=== PATIENT | female | born 1940 | race Caucasian/White ===

== ENCOUNTER 2020-03-16 06:57 | Day surgery (SDC) | payer MEDICARE, OTHER ==
[~2020-03-16 06:57] MED LIST: Lactated Ringers 1,000 ML IV SCH; Lidocaine 1%/Sod Bicarbonate in NS 8.4% 1 ML Syringe IDERM PRN; Sodium Chloride 0.9% 10 ML Syringe FLUSH PRN
[2020-03-16] MEDS ORDERED: fentaNYL 100 MCG/2 ML SDV ONE (07:09)
[2020-03-16] MEDS ORDERED: Propofol 200 MG/20 ML SDV ONE ×3 (07:09→09:13)
--- NOTE | 2020-03-16 07:26 | PCM.PREANE ---
Preanesthetic Assessment - Procedure Proposed Procedure: EGD, Colonoscopy - Anesthesia/Transfusion/Family Hx Anesthesia History: Prior Anesthesia Without Reaction Transfusion History: No Prior Transfusion(s) - Review of Systems General: No Symptoms Pulmonary: No Symptoms Cardiovascular: Dyspnea on Exertion (as a baseline) Gastrointestinal: Other (occasional discomfort) Neurological: No Symptoms Other: Reports: Diabetes - Physical Assessment NPO Status Date: 03/15/20 NPO Status Time: 20:15 Vital Signs: Last Vital Signs Temp 98.7 F 03/16/20 07:00 Pulse 66 03/16/20 07:00 Resp 20 03/16/20 07:00 BP 164/99 H 03/16/20 07:00 Pulse Ox 97 03/16/20 07:00 Height: 1.55 m Weight: 73.936 kg ASA Class: 3 Mental Status: Alert & Oriented x3 Dentition: Reports: Dentures, Edentulous Thyro-Mental Finger Breadths: 3 Mouth Opening Finger Breadths: 3 ROM/Head Extension: Limited/Partial Lungs: Clear to Auscultation, Normal Respiratory Effort Cardiovascular: Other (Paced rhythm) - Imaging/EKG Impressions: V paced EKG Echo 10/15/19 Moderate bilateral enlargement, EF 60-65% - Allergies Allergies/Adverse Reactions: Allergies Allergy/AdvReac Type Severity Reaction Status Date / Time amoxicillin Allergy Anaphylactic Verified 03/15/20 14:01 Shock Cephalosporins Allergy Swelling Verified 03/15/20 14:01 doxycycline Allergy Cannot Verified 03/15/20 14:01 Remember isosorbide [From Imdur] Allergy Cannot Verified 03/15/20 14:01 Remember pramipexole [From Mirapex] Allergy Cannot Verified 03/15/20 14:01 Remember pravastatin [From Pravachol] Allergy Cannot Verified 03/15/20 14:01 Remember Quinolones Allergy Cannot Verified 03/15/20 14:01 Remember Sulfa (Sulfonamide Allergy Anaphylactic Verified 03/15/20 14:01 Antibiotics) Shock valsartan [From Diovan] Allergy Anaphylactic Verified 03/15/20 14:01 Shock - Anesthesia Plan Beta Meghan: Atenolol Med Last Dose Date: 03/15/20 Med Last Dose Time: 17:00 - Acknowledgements Anesthesia Type Planned: MAC Pt an Appropriate Candidate for the Planned Anesthesia: Yes Alternatives and Risks of Anesthesia Discussed w Pt/Guardian: Yes Pt/Guardian Understands and Agrees with Anesthesia Plan: Yes PreAnesthesia Questionnaire HEENT History: Reports: Cataract, Hard of Hearing, Impaired Vision, Sinusitis, Other (See Below) Other HEENT History: eye pain, wears glasses, ringing in ears, nasal stufiness, sore throat Cardiovascular History: Reports: Afib, CAD, High Cholesterol, Hypertension, Pacemaker, PTCA, Other (See Below) Other Cardiovascular History: sick sinus syndrome, ankle edema Respiratory History: Reports: None Gastrointestinal History: Reports: Chronic Constipation, Chronic Diarrhea, Diverticulosis, Hemorrhoids, PUD, Other (See Below) Other Gastrointestinal History: fecal incontinence, hematochezia, upper abdominal pain, heartburn, nausea, blood in stools Genitourinary History: Reports: Other (See Below) Other Genitourinary History: parital bladder excsion, cystoscopy, burning, nocturia, leakage [employer]EL[employer] History: Reports: Musculoskeletal History: Reports: Back Pain, Chronic, Osteoarthritis, Other (See Below) Other Musculoskeletal History: ostepenia, joint pain, muscle pain, stiffness Neurological History: Reports: Other (See Below) Other Neuro History: fatigue, numbness, tremors, memory loss Endocrine/Metabolic History: Reports: Diabetes, Type II, Obesity/BMI 30+, Osteopenia, Vitamin D Deficiency Immunologic History: Reports: None Oncologic (Cancer) History: Reports: Bladder, Breast Dermatologic History: Reports: Other (See Below) Other Dermatologic History: hives - Infectious Disease History Infectious Disease History: Reports: None - Past Surgical History HEENT Surgical History: Reports: Cataract Surgery Cardiovascular Surgical History: Reports: Pacer, Other (See Below) Other Cardiovascular Surgeries/Procedures: cardiac catherization with stenting x 2 GI Surgical History: Reports: EGD, Other (See Below) Other GI Surgeries/Procedures: partial gasrectomy Female Surgical History: Reports: None Male Surgical History: Reports: None Endocrine Surgical History: Reports: None Musculoskeletal Surgical History: Reports: None Oncologic Surgical History: Reports: Biopsy of Breast, Lumpectomy - SUBSTANCE USE Tobacco Use Status *Q: Former Tobacco User Recreational Drug Use History: No - HOME MEDS Home Medications: Home Meds Insulin Aspart [Novolog Flexpen] 18 units SQ TIDAC 08/12/13 [History] Multivitamin [Multivitamins] 1 each PO DAILY 08/12/13 [History] atenoloL [Tenormin] 100 mg PO DAILY 08/12/13 [History] dilTIAZem HCL [Taztia Xt] 360 mg PO DAILY 08/12/13 [History] metFORMIN [Glucophage] 500 mg PO DAILY 08/12/13 [History] Acetaminophen [Tylenol Extra Strength] 1 - 2 tab PO Q4HR PRN 01/01/16 [History] Cetirizine [ZyrTEC] 10 mg PO DAILY 01/01/16 [History] Nitroglycerin [Nitrostat] 0.4 mg SL ASDIRECTED PRN 01/01/16 [History] Triamterene/Hydrochlorothiazid [Triamterene-HCTZ 37.5-25 MG] 1 tab PO DAILY 01/01/16 [History] Hydrocortisone [Cortisone] 1 dose TOP TID PRN 03/15/20 [History] Insulin Detemir [Levemir] 52 units SQ QAM 03/15/20 [History] Rivaroxaban [Xarelto] 15 mg PO DAILY 03/15/20 [History] atorvaSTATin [Lipitor] 80 mg PO DAILY 03/15/20 [History] - CURRENT (IN HOUSE) MEDS Current Meds: Current Medications Lactated Ringer's (Ringers, Lactated) 1,000 mls @ 125 mls/hr IV ASDIRECTED MARCIO Stop: 03/16/20 23:00 Lidocaine/Sodium Bicarbonate (Buffered Lidocaine 1% In Ns 8.4%) 0.25 ml IDERM ONETIME PRN PRN Reason: Prior to IV Start Stop: 03/16/20 18:00 Sodium Chloride (Saline Flush) 10 ml FLUSH ASDIRECTED PRN PRN Reason: Keep Vein Open Stop: 03/16/20 18:00 Discontinued Medications Fentanyl (Sublimaze) Confirm Administered Dose 100 mcg .ROUTE .STK-MED ONE Stop: 03/16/20 07:10 Propofol (Diprivan 20 Ml) Confirm Administered Dose 400 mg .ROUTE .STK-MED ONE Stop: 03/16/20 07:10
[2020-03-16] MEDS ORDERED: Lidocaine 1% 4 ML ONE (08:48)
--- NOTE | 2020-03-16 09:43 | PCM.OPNOTE ---
- General Post-Op/Procedure Note Date of Surgery/Procedure: 03/16/20 Operative Procedure(s): EGD and colonoscopy Findings: 1. gastritis 2. Hiatal hernia 3. Irregular Z-line 4. Cecal polyp x2 5. Ileocecal valve polyp 6. Ascending colon polyp 1cm 7. Transverse colon polyp 1.3cm 8. Transverse colon polyp x3 9. Splenic flexure polyp x2 10. Descending colon polyp 11. RectoSigmoid colitis Pre Op Diagnosis: Melena, early satiety, change in bowel habits, fecal incontinence Post-Op Diagnosis: same Anesthesia Technique: [facility] Primary Surgeon: Susan Rangel Anesthesia Provider: Isaiah Morse Pathology: 1. Distal stomach biopsy 2. Z-line biopsies 3. Cecal polyp x2 4. Ileocecal valve polyp 5. Ascending colon polyp 1cm 6. Transverse colon polyp 1.3cm 7. Transverse colon polyp x3 8. Splenic flexure polyp x2 9. Descending colon polyp 10. RectoSigmoid colitis biopsies Fluid Replacement, Intraop: 700 EBL in mLs: 0 Complications: none apparent Condition: Good
--- NOTE | 2020-03-16 09:43 | PCM48HPAN ---
Post Anesthesia Note - EVALUATION WITHIN 48HRS OF ANESTHETIC Vital Signs in Normal Range: Yes Patient Participated in Evaluation: Yes Respiratory Function Stable: Yes Airway Patent: Yes Cardiovascular Function Stable: Yes Hydration Status Stable: Yes Pain Control Satisfactory: Yes Nausea and Vomiting Control Satisfactory: Yes Mental Status Recovered: Yes Vital Signs: Last Vital Signs Temp 97.3 F 03/16/20 09:33 Pulse 69 03/16/20 09:33 Resp 20 03/16/20 09:33 BP 140/78 03/16/20 09:33 Pulse Ox 95 03/16/20 09:33
--- NOTE | 2020-03-16 10:22 | PCM.PRNOTE ---
- Free Text/Narrative Note: Operative Report Date of Procedure: March 16, 2020 Pre Op Diagnosis: melena, early satiety, change in bowel habits, fecal incontinence. Post-Op Diagnosis: same Operative Procedures: 1. EGD with biopsy 2. Colonoscopy to the cecum Primary Surgeon: Susan Rangel MD Anesthesia Provider: Isaiah Morse CRNA Anesthesia Technique: MAC IV Fluid Replacement, Intraop: 700cc crystalloid Output, Urine Amount: 0cc EBL in mLs: 0cc Findings: 1. gastritis 2. Hiatal hernia 3. Irregular Z-line 4. Cecal polyp x2 5. Ileocecal valve polyp 6. Ascending colon polyp 1cm 7. Transverse colon polyp 1.3cm 8. Transverse colon polyp x3 9. Splenic flexure polyp x2 10. Descending colon polyp 11. RectoSigmoid colitis 12. Diverticulosis 13. Rectal mucosal prolapse Specimens: 1. Distal stomach biopsy 2. Z-line biopsies 3. Cecal polyp x2 4. Ileocecal valve polyp 5. Ascending colon polyp 1cm 6. Transverse colon polyp 1.3cm 7. Transverse colon polyp x3 8. Splenic flexure polyp x2 9. Descending colon polyp 10. RectoSigmoid colitis biopsies Drain/Tubes: None Indication: The patient is an 79-year-old lady who presented to the clinic for evaluation for endoscopy procedures. The patient reported symptoms of melena, early satiety, change in bowel habits and fecal incontinence . The patient was consented for a diagnostic EGD and colonoscopy. Risks of bleeding, and perforation were discussed, and the patient agreed to the risks and wished to proceed. Description of the procedure: The patient was taken back to the endoscopy suite, and placed in the left lateral decubitus position. A bite block was placed. The patient was sedated with MAC anesthesia. The Olympus video endoscope was inserted into the oropha rynx and guided under direct vision into the esophagus, stomach, and duodenum. The duodenal bulb and second portion of the duodenum were unremarkable. 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 The anastomosis was intact without abnormality. The gastric antrum was inspected and cold biopsy forceps were used to take tissue samples for H. pylori. The mucosa of the stomach was erythematous and edematous throughout with some punctate areas of bleeding. No erosions or ulcers were noted. The scope was withdrawn to the GE junction. A this point we noted a small hiatal hernia. No specific Barretts esophagus changes were noted, but there was irregularity of the Z line consistent with esophagitis. Biopsies were taken of the Z line in 4 quadrants with a cold biopsy forceps. The endoscope was then withdrawn Next, anorectal examination was performed. No lesions, masses or hemorrhoids were noted externally or on palpation. There were multiple skin tags, and a small amount of rectal mucosal prolapse. The scope was placed into the rectum and advanced to cecum. Upon reaching the cecum, and the patients cecum was entered. There was moderate tortuosity of the rectum and sigmoid colon. The ileocecal valve was well visualized and the appendiceal orifice identified. At this point, the scope was slowly withdrawn, paying attention to the mucosa. The patient had good bowel prep, 90-95% of the mucosa was visible. An 8mm sessile cecal polyp was noted and removed with a jumbo cold biopsy forceps. An additional sessile 3mm cecal polyp was noted and removed with a jumbo cold biopsy forceps. A 3mm flat polyp was noted on the ileocecal valve and removed using a jumbo cold biopsy forceps. In the ascending colon, a 1cm sessile irregular polyp was noted and removed with a jumbo cold biopsy forceps. A proximal transverse colon polyp was noted and measured approximately 1.3cm. It was removed using a jumbo cold biopsy forceps, and this area was tattooed with fannie ink. There were 3 additional polyps in the transverse colon measuring 3-4 mm, and were removed using a jumbo cold biopsy forceps. There were 2 sessile polyps in the area of the splenic flexure, measuring 3-4 mm, and were removed with a jumbo cold biopsy forceps. An additional flat, 3mm descending colon polyp was noted and removed using a jumbo cold biopsy forceps. There were multiple large-mouthed diverticula concentrated in the sigmoid colon, but also scattered throughout the entire colon. In the recto-sigmoid area, there was erythema and petechiae consistent with colitis, and this was biopsied with a jumbo cold biopsy forceps. In the rectum, scope was retroflexed and some hemorrhoidal tissue was noted. The scope was placed back in the lumen and excess air was aspirated. The scope was removed. The patient tolerated the procedure very well. Complications: None apparent Condition: The patient was transported to PACU in stable condition. Susan Rangel MD General Surgery
[2020-03-16 11:13] VITALS: BP 147/78; PULSE 90
== END 2020-03-16 10:30 | disposition home or self-care (01) ==
LOC: JD.SDS 06:57
PROVIDERS: ATTEND Surgery
DX: D12.0 Benign neoplasm of cecum (principal); D12.2 Benign neoplasm of ascending colon; D12.3 Benign neoplasm of transverse colon; D12.4 Benign neoplasm of descending colon; K44.9 Diaphragmatic hernia without obstruction or gangrene; K21.00 Gastro-esophageal reflux disease with esophagitis, without bleeding; K31.89 Other diseases of stomach and duodenum; K29.70 Gastritis, unspecified, without bleeding; K57.30 Diverticulosis of large intestine without perforation or abscess without bleeding; K62.3 Rectal prolapse; K52.9 Noninfective gastroenteritis and colitis, unspecified; K64.4 Residual hemorrhoidal skin tags; I25.10 Atherosclerotic heart disease of native coronary artery without angina pectoris; I49.5 Sick sinus syndrome; I48.20 Chronic atrial fibrillation, unspecified; I10 Essential (primary) hypertension; E78.5 Hyperlipidemia, unspecified; Z95.0 Presence of cardiac pacemaker; Z88.1 Allergy status to other antibiotic agents; Z88.2 Allergy status to sulfonamides; Z88.8 Allergy status to other drugs, medicaments and biological substances; Z79.899 Other long term (current) drug therapy; Z95.5 Presence of coronary angioplasty implant and graft; Z87.891 Personal history of nicotine dependence
CPT/HCPCS: 43239; 45380; 45381; 82962; 88305; J2001; J2704; J3010; J7120; 00813

== ENCOUNTER 2020-10-24 09:47 | Observation (INO) | payer MEDICARE, OTHER ==
--- NOTE | 2020-10-24 10:25 | EDM.PDOC ---
ED HPI GENERAL MEDICAL PROBLEM - General Chief Complaint: Cardiovascular Problem Stated Complaint: RACING HEART, SWEATING,SWOLLEN FEET Time Seen by Provider: 10/24/20 10:25 Source of Information: Reports: Patient History Limitations: Reports: No Limitations - History of Present Illness INITIAL COMMENTS - FREE TEXT/NARRATIVE: 80-year-old female presents to the ED in the accompaniment of her daughter. The history suggest that she has had increased weight gain and increased marked dependent edema over the last several weeks but worse over the weekend. She is short of breath on minimal exertion such as just walking from the bedroom to the bathroom. She can lie on her left side to sleep and does not use more than one pillow. No PND orthopnea. Mild nonproductive cough. No fever or chills. Patient does carry a history of congestive heart failure. She is aware that her heart is beating hard in her chest at times. This is mostly noted on exertion. She has a pacemaker left upper anterior chest. Denies any pleuritic chest pain. Does describe a central chest heaviness at times. She reports being placed on an antianxiety tablet only with no other changes to medications in the last 2 months. Patient is on Xarelto suggesting she carries a history of congestive heart failure and possible atrial fibrillation. She is also in type II diabetic controlled with insulin and Metformin Onset: Gradual Onset Date: 10/10/20 (Gradually worsening dependent edema and shortness of breath over the last 2 weeks.) Duration: Week(s):, Constant, Getting Worse Location: Reports: Generalized (Increased dyspnea on minimal exertion. Increased weight gain of about 10 pounds over the last 2 weeks and appreciated marked swelling of her lower extremities up to her knees bilaterally.) Quality: Reports: Ache (Legs ache and throb at nighttime.) Severity: Moderate Improves with: Reports: Rest Worsens with: Reports: Other (Dyspnea is worse on minimal exertion such as walking from the bedroom to the bathroom. Feels her heart is working hard in her chest and perhaps racing. No dizziness or lightheadedness or syncope.) Context: Reports: Other. Denies: Activity, Exercise, Lifting, Sick Contact, Trauma Associated Symptoms: Reports: Chest Pain, Cough (Describes a central chest heaviness but not of pain.), Malaise, Rash (Rash on her lower extremities with pinpoint hemorrhages in multiple areas abdominal wall and lower extremities.), Shortness of Breath, Weakness. Denies: Confusion (Gradually worsening symptoms of congestive heart failure over the last 2 weeks.), cough w sputum ( Nonproductive cough), Diaphoresis, Fever/Chills, Headaches, Nausea/Vomiting, Seizure (On minimal exertion such as walking from the bedroom to the bathroom.) Treatments SKIAGRAPHER: Reports: Other (see below) (Only prescribed medications.) - Related Data Allergies Allergy/AdvReac Type Severity Reaction Status Date / Time amoxicillin Allergy Anaphylactic Verified 10/24/20 10:02 Shock Cephalosporins Allergy Swelling Verified 10/24/20 10:02 doxycycline Allergy Cannot Verified 10/24/20 10:02 Remember isosorbide [From Imdur] Allergy Cannot Verified 10/24/20 10:02 Remember pramipexole [From Mirapex] Allergy Cannot Verified 10/24/20 10:02 Remember pravastatin [From Pravachol] Allergy Cannot Verified 10/24/20 10:02 Remember Quinolones Allergy Cannot Verified 10/24/20 10:02 Remember Sulfa (Sulfonamide Allergy Anaphylactic Verified 10/24/20 10:02 Antibiotics) Shock valsartan [From Diovan] Allergy Anaphylactic Verified 10/24/20 10:02 Shock Home Meds: Home Meds Insulin Aspart [Novolog Flexpen] 18 units SQ TIDAC 08/12/13 [History] dilTIAZem HCL [Taztia Xt] 360 mg PO DAILY 08/12/13 [History] metFORMIN [Glucophage] 500 mg PO DAILY 08/12/13 [History] Acetaminophen [Tylenol Extra Strength] 1 - 2 tab PO Q4HR PRN 01/01/16 [History] Insulin Detemir [Levemir] 50 units SQ QAM 03/15/20 [History] Omeprazole 20 mg PO DAILY #30 tablet. 03/16/20 [Rx] Rivaroxaban [Xarelto] 15 mg PO DAILY #0 03/16/20 [Rx] Loratadine 10 mg PO DAILY PRN 10/24/20 [History] Psyllium Husk [Daily Fiber] 5 cap PO DAILY 10/24/20 [History] Sertraline [Zoloft] 25 mg PO DAILY 10/24/20 [History] Past Medical History HEENT History: Reports: Cataract, Hard of Hearing, Impaired Vision, Sinusitis, Other (See Below) Other HEENT History: eye pain, wears glasses, ringing in ears, nasal stufiness, sore throat Cardiovascular History: Reports: Afib, CAD, Heart Failure, High Cholesterol, Hypertension, Pacemaker, PTCA, Other (See Below) Other Cardiovascular History: sick sinus syndrome, ankle edema Respiratory History: Reports: None Gastrointestinal History: Reports: Chronic Constipation, Chronic Diarrhea, Diverticulosis, Hemorrhoids, PUD, Other (See Below) Other Gastrointestinal History: fecal incontinence, hematochezia, upper abdominal pain, heartburn, nausea, blood in stools Genitourinary History: Reports: Other (See Below) Other Genitourinary History: parital bladder excsion, cystoscopy, burning, nocturia, leakage [employer] History: Reports: Musculoskeletal History: Reports: Back Pain, Chronic, Osteoarthritis, Other (See Below) Other Musculoskeletal History: ostepenia, joint pain, muscle pain, stiffness. Recently had bilateral knee injections by Dr. Wray orthopedic surgeon within the last 2 weeks and perhaps pain relief for 2 days. Knees are [id number] and she uses a walker to aid her gait. She is afraid of surgery. Neurological History: Reports: Other (See Below) Other Neuro History: fatigue, numbness, tremors, memory loss Psychiatric History: Reports: None Endocrine/Metabolic History: Reports: Diabetes, Type II (Controlled with Levemir once daily and regular insulin with meals. Also using Metformin daily), Obesity/BMI 30+, Osteopenia, Vitamin D Deficiency Hematologic History: Reports: None Immunologic History: Reports: None Oncologic (Cancer) History: Reports: Bladder, Breast Dermatologic History: Reports: Other (See Below) Other Dermatologic History: hives - Infectious Disease History Infectious Disease History: Reports: None - Past Surgical History HEENT Surgical History: Reports: Cataract Surgery Cardiovascular Surgical History: Reports: Pacer, Other (See Below) Other Cardiovascular Surgeries/Procedures: cardiac catherization with stenting x 2 Respiratory Surgical History: Reports: None GI Surgical History: Reports: EGD, Other (See Below) Other GI Surgeries/Procedures: partial gasrectomy Female Surgical History: Reports: None Endocrine Surgical History: Reports: None Musculoskeletal Surgical History: Reports: None Oncologic Surgical History: Reports: Biopsy of Breast, Lumpectomy Social & Family History - Tobacco Use Tobacco Use Status *Q: Former Tobacco User Used Tobacco, but Quit: Yes Month/Year Tobacco Last Used: 1997 - Caffeine Use Caffeine Use: Reports: Tea - Recreational Drug Use Recreational Drug Use: No - Living Situation & Occupation Living situation: Reports: Occupation: Retired ED ROS GENERAL - Review of Systems Review Of Systems: See Below Constitutional: Reports: Malaise, Weakness, Fatigue, Weight Gain. Denies: Fever, Chills HEENT: Reports: Glasses (Approximately 10 pounds in the last 2 weeks), Other (Previous cataract extractions and intraocular lens implants.) Respiratory: Reports: Shortness of Breath, Cough. Denies: Wheezing, Pleuritic Chest Pain, Sputum, Hemoptysis (Nonproductive) Cardiovascular: Reports: Chest Pain, Blood Pressure Problem (Chest heaviness but not she would not call it a pain in the central chest.), Dyspnea on Exertion, Edema, Palpitations. Denies: Claudication ( Chronic hypertension), Lightheadedness, Orthopnea Endocrine: Reports: Fatigue (Feels like her heart is working hard at times.) GI/Abdominal: Reports: Diarrhea (Remittent diarrhea with a strong sense of urgency to go. This makes it difficult for her to get to the bathroom on time due to dyspnea. She has had several accidents.) : Reports: Frequency, Incontinence, Urgency Musculoskeletal: Reports: Joint Pain (Arthritic changes knees hips low back shoulders and neck. No prosthetic joints.) Skin: Reports: Bruising, Rash (Petechial rash both lower extremities and abdominal wall. Worsened since increased edema both lower extremities.) Neurological: Reports: Numbness, Tingling (Both lower extremities with a component of), Difficulty Walking, Weakness (Uses a walker to aid her gait due to terrible pain in her knees and legs giving out intermittently.). Denies: Confusion, Dizziness, Headache, Trouble Speaking ( peripheral neuropathy.) Psychiatric: Reports: No Symptoms Hematologic/Lymphatic: Reports: No Symptoms Immunologic: Reports: No Symptoms ED EXAM, GENERAL - Physical Exam Exam: See Below Exam Limited By: No Limitations General Appearance: Alert, WD/WN, No Apparent Distress, Anxious, Other (Mildly anxious. Temperature is 36.3 with a heart rate of 115 recorded initially. Respiratory was 20 with O2 sats of 98% room air. BP was elevated initially at 163 /109.) Eye Exam: Right Eye: Conjunctival Injection, Bilateral Eye: Normal Inspection (No scleral icterus or blepharal pallor. Evidence of bilateral cataract extraction and intraocular lens implants.), PERRL Throat/Mouth: Normal Inspection, Normal Lips, Normal Oropharynx, Other Head: Atraumatic, Normocephalic (Tongue is moist.) Neck: Normal Inspection, Supple, Non-Tender, Full Range of Motion. No: Carotid Bruit, Lymphadenopathy (L), Lymphadenopathy (R), Thyromegaly Respiratory/Chest: No Accessory Muscle Use, Chest Non-Tender, Respiratory Distress, Decreased Breath Sounds (Decreased breath sounds to the lower 20% of lung hunter bilaterally with a few crackles in both lung bases slightly worse on the right as compared to the left.). No: Lungs Clear (Mild tachypnea at rest.), Normal Breath Sounds Cardiovascular: No Gallop, No Murmur, No Rub, Irregularly Irregular (Irregular rate. Monitor shows atrial fibrillation with occasional paced beats if heart rate drops below 70. Otherwise heart rate is between 75 and 125/min.). No: Normal Peripheral Pulses, Regular Rate, Rhythm, No Edema Peripheral Pulses: 1+: Posterior Tibial (L) (Pulses in her feet are very difficult to feel due to significant bilateral dependent edema.), Posterior Tibial (R), Dorsalis Pedis (L), Dorsalis Pedis (R), 2+: Carotid (L), Carotid (R) GI/Abdominal: Normal Bowel Sounds, Soft, Non-Tender, No Organomegaly, No Mass, Pelvis Stable, Other (I suspect she does suffer from some dumping syndrome.) Back Exam: Normal Inspection, Decreased Range of Motion, Paraspinal Tenderness (Ellsworth is very tender adjacent to her scapula on the left side I suspect rib head subluxation at ribs 6 and 7.). No: CVA Tenderness (L) (Decreased range of motion lumbar spine.), CVA Tenderness (R) Extremities: Pedal Edema (4+ pitting edema up to the knees bilaterally. Associated venous stasis dermatitis with new petechial hemorrhages in multiple areas of both lower extremities. Patient is on Xarelto.), Other (Both lower extremities are tender to touch.) Neurological: Alert, Oriented, CN II-XII Intact, Normal Cognition, Other. No: Normal Gait Psychiatric: Normal Affect (Walks with the aid of a walker.), Normal Mood Skin Exam: Warm, Dry, Intact, Normal Color, Other (Patient has multiple petechial hemorrhages particular noted on her anterior chest breasts and abdominal wall which appear to be fading. She has more fresh petechial hemorrhages on her lower extremities with associated dependent edema. Of note the patient is on Xarelto 15 mg once daily.) #1 Interpretation EKG Date: 10/24/20 Time: 10:37 Rhythm: Other (Occasional paced rhythm if heart rate travels below 70 bpm. With a rate of 72 to 125 bpm.) Rate (Beats/Min): 90 Mcdonough: RAD-Right Mcdonough Deviation (112 degrees) P-Wave: Absent QRS: Other (Right bundle branch block pattern with T wave inversion V1 to V4. She also has a left posterior fascicular block pattern. There is a near Q-wave in lead I and aVL suggesting old lateral wall infarct.) ST-T: Other (T wave is also inverted in leads III and aVF nonspecific finding. Flat in lead II.) QT: Prolonged EKG Interpretation Comments: Abnormal ECG Course - Vital Signs Last Recorded V/S: Last Vital Signs Temp 36.3 C 10/24/20 09:57 Pulse 115 H 10/24/20 09:57 Resp 18 10/24/20 12:36 BP 123/61 10/24/20 12:36 Pulse Ox 98 10/24/20 09:57 - Orders/Labs/Meds Orders: Active Orders 24 hr Category Date Time Status EKG Documentation Completion [RC] STAT Care 10/24/20 10:19 Active Peripheral IV Care [RC] . DIRECTED Care 10/24/20 10:36 Active CORONAVIRUS COVID-19 CIARRA [MOLEC] Stat Lab 10/24/20 11:30 Received Sodium Chloride 0.9% [Saline Flush] Med 10/24/20 10:36 Active 10 ml FLUSH ASDIRECTED PRN Peripheral IV Insertion Adult [OM.PC] Stat Oth 10/24/20 10:36 Ordered Medication Orders Metformin HCl (Metformin 500 Mg Tab) 500 mg PO DAILY MARCIO Non-Formulary Medication (Diltiazem Hcl [Taztia Xt]) 360 mg PO DAILY MARCIO Non-Formulary Medication (Omeprazole [Omeprazole]) 20 mg PO DAILY MARCIO Rivaroxaban (Rivaroxaban 15 Mg Tab) 15 mg PO DAILY MARCIO Sertraline HCl (Sertraline 25 Mg Tab) 25 mg PO DAILY MARCIO Sodium Chloride (Sodium Chloride 0.9% 10 Ml Syringe) 10 ml FLUSH ASDIRECTED PRN PRN Reason: Keep Vein Open Last Admin: 10/24/20 10:40 Dose: 10 ml Documented by: KATHERIN Labs: Laboratory Tests 10/24/20 10/24/20 10/24/20 Range/Units 10:00 10:00 10:00 WBC 6.51 (3.98-10.04) K/mm3 RBC 3.85 L (3.98-5.22) M/mm3 Hgb 13.0 (11.2-15.7) gm/dl Hct 40.0 (34.1-44.9) % MCV 103.9 H (79.4-94.8) fl MCH 33.8 H (25.6-32.2) pg MCHC 32.5 (32.2-35.5) g/dl RDW Std Deviation 54.5 H (36.4-46.3) fL Plt Count 269 (182-369) K/mm3 MPV 10.8 (9.4-12.3) fl Neut % (Auto) 71.1 (34.0-71.1) % Lymph % (Auto) 15.8 L (19.3-51.7) % Ray % (Auto) 11.2 (4.7-12.5) % Eos % (Auto) 0.8 (0.7-5.8) Baso % (Auto) 0.3 (0.1-1.2) % Neut # (Auto) 4.63 (1.56-6.13) K/mm3 Lymph # (Auto) 1.03 L (1.18-3.74) K/mm3 Ray # (Auto) 0.73 H (0.24-0.36) K/mm3 Eos # (Auto) 0.05 (0.04-0.36) K/mm3 Baso # (Auto) 0.02 (0.01-0.08) K/mm3 PT (9.7-12.0) SECONDS INR APTT (21.7-31.4) SECONDS Sodium 141 (136-145) mEq/L Potassium 3.6 (3.5-5.1) mEq/L Chloride 105 (98-107) mEq/L Carbon Dioxide 23 (21-32) mEq/L Anion Gap 16.6 H (5-15) BUN 11 (7-18) mg/dL Creatinine 0.8 (0.55-1.02) mg/dL Est Cr Clr Drug Dosing 42.88 mL/min Estimated GFR (MDRD) > 60 (>60) mL/min BUN/Creatinine Ratio 13.8 L (14-18) Glucose 136 H (70-99) mg/dL Calcium 8.9 (8.5-10.1) mg/dL Magnesium (1.8-2.4) mg/dL Total Bilirubin 0.6 (0.2-1.0) mg/dL AST 19 (15-37) U/L ALT 27 (14-59) U/L Alkaline Phosphatase 118 H (46-116) U/L Troponin I < 0.017 (0.00-0.056) ng/mL NT-Pro-B Natriuret Pep 1873 H (0-450) pg/mL Total Protein 6.7 (6.4-8.2) g/dl Albumin 3.4 (3.4-5.0) g/dl Globulin 3.3 gm/dL Albumin/Globulin Ratio 1.0 (1-2) 10/24/20 10/24/20 Range/Units 10:35 10:35 WBC (3.98-10.04) K/mm3 RBC (3.98-5.22) M/mm3 Hgb (11.2-15.7) gm/dl Hct (34.1-44.9) % MCV (79.4-94.8) fl MCH (25.6-32.2) pg MCHC (32.2-35.5) g/dl RDW Std Deviation (36.4-46.3) fL Plt Count (182-369) K/mm3 MPV (9.4-12.3) fl Neut % (Auto) (34.0-71.1) % Lymph % (Auto) (19.3-51.7) % Ray % (Auto) (4.7-12.5) % Eos % (Auto) (0.7-5.8) Baso % (Auto) (0.1-1.2) % Neut # (Auto) (1.56-6.13) K/mm3 Lymph # (Auto) (1.18-3.74) K/mm3 Ray # (Auto) (0.24-0.36) K/mm3 Eos # (Auto) (0.04-0.36) K/mm3 Baso # (Auto) (0.01-0.08) K/mm3 PT 11.4 (9.7-12.0) SECONDS INR 1.07 APTT 24.3 (21.7-31.4) SECONDS Sodium (136-145) mEq/L Potassium (3.5-5.1) mEq/L Chloride (98-107) mEq/L Carbon Dioxide (21-32) mEq/L Anion Gap (5-15) BUN (7-18) mg/dL Creatinine (0.55-1.02) mg/dL Est Cr Clr Drug Dosing mL/min Estimated GFR (MDRD) (>60) mL/min BUN/Creatinine Ratio (14-18) Glucose (70-99) mg/dL Calcium (8.5-10.1) mg/dL Magnesium 1.9 (1.8-2.4) mg/dL Total Bilirubin (0.2-1.0) mg/dL AST (15-37) U/L ALT (14-59) U/L Alkaline Phosphatase (46-116) U/L Troponin I (0.00-0.056) ng/mL NT-Pro-B Natriuret Pep (0-450) pg/mL Total Protein (6.4-8.2) g/dl Albumin (3.4-5.0) g/dl Globulin gm/dL Albumin/Globulin Ratio (1-2) Meds: Medications Generic Name Dose Route Start Last Admin Trade Name Freq PRN Reason Stop Dose Admin Metformin HCl 500 mg 10/25/20 09:00 Metformin 500 Mg Tab PO DAILY MARCIO Non-Formulary Medication 360 mg 10/25/20 09:00 Diltiazem Hcl [Taztia Xt] PO DAILY MARCIO Non-Formulary Medication 20 mg 10/25/20 09:00 Omeprazole [Omeprazole] PO DAILY MARCIO Rivaroxaban 15 mg 10/25/20 09:00 Rivaroxaban 15 Mg Tab PO DAILY [facility] Sertraline HCl 25 mg 10/25/20 09:00 Sertraline 25 Mg Tab PO DAILY [facility] Sodium Chloride 10 ml 10/24/20 10:36 10/24/20 10:40 Sodium Chloride 0.9% 10 Ml Syringe FLUSH 10 ml ASDIRECTED PRN Administration Keep Vein Open Discontinued Medications Generic Name Dose Route Start Last Admin Trade Name Lauro PRN Reason Stop Dose Admin Furosemide 40 mg 10/24/20 10:36 10/24/20 10:48 Furosemide 40 Mg/4 Ml Vial IVPUSH 10/24/20 10:37 40 mg NOW ONE Administration Metoprolol Tartrate 5 mg 10/24/20 10:52 10/24/20 11:08 Metoprolol Tartrate 5 Mg/5 Ml Sdv IVPUSH 10/24/20 10:53 Not Given ONETIME ONE - Radiology Interpretation Free Text/Narrative:: 80-year-old female presents to the ED with gradually worsening dependent edema both lower extremities over the last 2 weeks. She suspects she has gained about 10 pounds. Associated dyspnea on minimal exertion making it difficult for her to get to the bathroom from her bedroom in time. Patient by history has intermittent significant diarrhea and I suspect dumping syndrome since she reports having half of her stomach removed for ulcerations in the . Patient is also type II diabetic controlled with insulin and Metformin. She has a pacemaker in place and appears to be set at 70/min. At present she is in atrial fibrillation with a rate of 75 to 125 bpm and she is aware of her racing heart intermittently. She denies any orthopnea and sleeps primarily in the left lateral decubitus position. She has some pain along her upper left thorax over the rib heads #6 and 7 and suspect suspect rib subluxation clinically. Decreased air entry to both lower lung hunter with crackles bilaterally compatible with heart failure. Plan one-view portable chest x-ray. ECG. Routine labs to include coags due to petechial hemorrhage is in her lower extremities bilaterally due to the edema. This is likely caused by Xarelto. - Re-Assessments/Exams Free Text/Narrative Re-Assessment/Exam: 10/24/20 11:04 Portable chest x-ray reveals heart to be enlarged. Upper mediastinum is within normal limits. Pulmonary vessels are felt to be moderately congested. Bilateral pleural effusions are evident. Bony structures show nothing acute. Pacemaker appreciated left upper anterior chest.. Patient will be given Lasix 40 mg IV at this time. O2 sats are staying around 93 to 95% on room air. 10/24/20 11:49 Labs reveal a white count of 6.51. Differential is 71% neutrophils. Hemoglobin is 13.0 with hematocrit of 40.0. MCV is mildly elevated at 103.9. Platelet count is 269,000. PT is 11.4 with an INR of 1.07 and a PTT of 24.3. Sodium 141 with potassium of 3.6 and chloride of 105. B icarb is 23 with an anion gap slightly increased at 16.6. BUN is 11 with a creatinine of 0.8 and a GFR greater than 60. Glucose is 136. Calcium is 8.9 with a magnesium of 1.9. Liver function is normal. Alkaline phosphatase was minimally elevated at 118. Troponin I is less than 0.017. BNP is 1873. Total protein 6.7 with albumin fraction of 3.4 10/24/20 12:29 Case has been discussed with on-call hospitalist Dr. Juan F Cortez and he is excepted care of this patient. She will be admitted to the [facility] surgery floor on telemetry. Admitting diagnosis is congestive heart failure. Chronic atrial fibrillation with controlled rate. Significant dependent edema. Petechial hemorrhages chest abdomen and legs 10/24/20 13:06 COVID-19 screen is not yet available. Departure - Departure Time of Disposition: 13:00 Disposition: Admitted As Inpatient 64 Condition: Fair Clinical Impression: Chronic atrial fibrillation, Petechial rash, Dependent edema, Type 2 diabetes mellitus Congestive heart failure Qualifiers: Heart failure type: biventricular Qualified Code(s): I50.82 - Biventricular heart failure Sepsis Event Note (ED) - Evaluation Sepsis Screening Result: No Definite Risk - Focused Exam Vital Signs: Vital Signs Temp Pulse Resp BP Pulse Ox 10/24/20 09:57 36.3 C 115 H 20 163/109 H 98 - My Orders Last 24 Hours: My Active Orders 10/24/20 10:19 EKG Documentation Completion [RC] STAT 10/24/20 10:36 Peripheral IV Care [RC] . DIRECTED Sodium Chloride 0.9% [Saline Flush] 10 ml FLUSH ASDIRECTED PRN Peripheral IV Insertion Adult [OM.PC] Stat 10/24/20 11:30 CORONAVIRUS COVID-19 CIARRA [MOLEC] Stat - Assessment/Plan Last 24 Hours: My Active Orders 10/24/20 10:19 EKG Documentation Completion [RC] STAT 10/24/20 10:36 Peripheral IV Care [RC] . DIRECTED Sodium Chloride 0.9% [Saline Flush] 10 ml FLUSH ASDIRECTED PRN Peripheral IV Insertion Adult [OM.PC] Stat 10/24/20 11:30 CORONAVIRUS COVID-19 CIARRA [MOLEC] Stat
[2020-10-24] MEDS ORDERED: Sodium Chloride 0.9% 10 ML Syringe FLUSH PRN (10:36)
[2020-10-24] MEDS ORDERED: Furosemide 40 MG/4 ML VIAL IVPUSH ONE (10:36)
--- NOTE | 2020-10-24 10:46 | CR ---
Chest: Portable view of the chest was obtained. Comparison: Prior chest x-ray of 01/14/12. Heart is enlarged. Upper mediastinum is within normal limits. Pulmonary vessels are felt to be slightly congested. Lungs otherwise are clear. Bony structures show nothing acute. Pacemaker is noted. Impression: 1. Pacemaker. 2. Findings suspicious for mild CHF. Diagnostic code #3
[2020-10-24] MEDS ORDERED: Metoprolol Tartrate 5 MG/5 ML SDV IVPUSH ONE (10:52)
[2020-10-24] MEDS ORDERED: Acetaminophen 325 MG Tab PO PRN (14:14)
[2020-10-24] MEDS ORDERED: Temazepam 7.5 MG Cap PO PRN (14:14)
[2020-10-24] MEDS ORDERED: Docusate Sodium 100 MG Cap PO PRN (14:14)
[2020-10-24] MEDS ORDERED: oxyCODONE 5 MG Tab PO PRN (14:14)
[2020-10-24] MEDS ORDERED: Ondansetron 4 MG Tab.DIS PO PRN (14:14)
--- NOTE | 2020-10-24 14:25 | PCM.HP.2 ---
H&P History of Present Illness - General Date of Service: 10/24/20 Admit Problem/Dx: Admission Diagnosis/Problem Admission Diagnosis/Problem Congestive heart failure Source of Information: Patient. No: Family History Limitations: Reports: No Limitations - History of Present Illness Initial Comments - Free Text/Narative: The patient is an 80-year-old lady who had presented to the emergency department with her daughter. The patient says that she has been short of breath as well as having painful swollen lower extremities. The patient's shortness of breath has been significant as she has been unable to walk across her kitchen without becoming short of breath. She also has a history of racing heart. The patient says that she has been getting worse over the weekend. She had gained approximately 10 pounds. Apparently she had been sick approximately 2 days ago. She has had no specific aggravating or relieving factors. The patient is currently taking Xarelto and has a history of atrial fibrillation. She also has a demand pacemaker. The patient has denied any orthopnea. She has a mild nonproductive cough. She is denied any fever or chills. Onset of Symptoms: Reports: Gradual Duration of Symptoms: Reports: Week(s):, Getting Worse Location: Reports: Chest, Lower Extremity, Left, Lower Extremity, Right Quality: Reports: Ache Severity: Moderate Improves with: Reports: Rest Worsens with: Reports: Movement Associated Symptoms: Reports: Cough, Diaphoresis, Rash, Shortness of Breath, Weakness - Related Data Allergies/Adverse Reactions: Allergies Allergy/AdvReac Type Severity Reaction Status Date / Time amoxicillin Allergy Anaphylactic Verified 10/24/20 10:02 Shock Cephalosporins Allergy Swelling Verified 10/24/20 10:02 doxycycline Allergy Cannot Verified 10/24/20 10:02 Remember isosorbide [From Imdur] Allergy Cannot Verified 10/24/20 10:02 Remember pramipexole [From Mirapex] Allergy Cannot Verified 10/24/20 10:02 Remember pravastatin [From Pravachol] Allergy Cannot Verified 10/24/20 10:02 Remember Quinolones Allergy Cannot Verified 10/24/20 10:02 Remember Sulfa (Sulfonamide Allergy Anaphylactic Verified 10/24/20 10:02 Antibiotics) Shock valsartan [From Diovan] Allergy Anaphylactic Verified 10/24/20 10:02 Shock Home Medications: Home Meds Insulin Aspart [Novolog Flexpen] 18 units SQ TIDAC 08/12/13 [History] dilTIAZem HCL [Taztia Xt] 360 mg PO DAILY 08/12/13 [History] metFORMIN [Glucophage] 500 mg PO DAILY 08/12/13 [History] Acetaminophen [Tylenol Extra Strength] 1 - 2 tab PO Q4HR PRN 01/01/16 [History] Insulin Detemir [Levemir] 50 units SQ QAM 03/15/20 [History] Omeprazole 20 mg PO DAILY #30 tablet. 03/16/20 [Rx] Rivaroxaban [Xarelto] 15 mg PO DAILY #0 03/16/20 [Rx] Loratadine 10 mg PO DAILY PRN 10/24/20 [History] Psyllium Husk [Daily Fiber] 5 cap PO DAILY 10/24/20 [History] Sertraline [Zoloft] 25 mg PO DAILY 10/24/20 [History] Past Medical History HEENT History: Reports: Cataract, Hard of Hearing, Impaired Vision, Sinusitis, Other (See Below) Other HEENT History: eye pain, wears glasses, ringing in ears, nasal stufiness, sore throat, upper and lower dentures, hearing aids Cardiovascular History: Reports: Afib, Automatic Implantable Cardioverter Defibrillators, CAD, Heart Failure, High Cholesterol, Hypertension, Pacemaker, PTCA, Other (See Below) Other Cardiovascular History: sick sinus syndrome, ankle edema Respiratory History: Reports: None Gastrointestinal History: Reports: Chronic Constipation, Chronic Diarrhea, Diverticulosis, Hemorrhoids, PUD, Other (See Below) Other Gastrointestinal History: fecal incontinence, hematochezia, upper abdominal pain, heartburn, nausea, blood in stools Genitourinary History: Reports: Other (See Below) Other Genitourinary History: parital bladder excsion, cystoscopy, burning, nocturia, leakage- appointment in december 2020 [employer] History: Reports: Musculoskeletal History: Reports: Back Pain, Chronic, Osteoarthritis, Other (See Below) Other Musculoskeletal History: ostepenia, joint pain, muscle pain, stiffness. Recently had bilateral knee injections by Dr. Wray orthopedic surgeon within the last 2 weeks and perhaps pain relief for 2 days. Knees are [id number] and she uses a walker to aid her gait. She is afraid of surgery. Neurological History: Reports: Other (See Below) Other Neuro History: fatigue, numbness, tremors Psychiatric History: Reports: None Endocrine/Metabolic History: Reports: Diabetes, Type II, Obesity/BMI 30+, Osteopenia, Vitamin D Deficiency Hematologic History: Reports: None Immunologic History: Reports: None Oncologic (Cancer) History: Reports: Bladder, Breast Dermatologic History: Reports: Other (See Below) Other Dermatologic History: hives - Infectious Disease History Infectious Disease History: Reports: None - Past Surgical History HEENT Surgical History: Reports: Cataract Surgery Cardiovascular Surgical History: Reports: Pacer, Other (See Below) Other Cardiovascular Surgeries/Procedures: cardiac catherization with stenting x 2 Respiratory Surgical History: Reports: None GI Surgical History: Reports: EGD, Other (See Below) Other GI Surgeries/Procedures: partial gasrectomy- from ulcer Female Surgical History: Reports: None Endocrine Surgical History: Reports: None Musculoskeletal Surgical History: Reports: None Oncologic Surgical History: Reports: Biopsy of Breast, Lumpectomy Social & Family History - Tobacco Use Tobacco Use Status *Q: Former Tobacco User Used Tobacco, but Quit: Yes Month/Year Tobacco Last Used: 1997 - Caffeine Use Caffeine Use: Reports: Tea - Recreational Drug Use Recreational Drug Use: No - Living Situation & Occupation Living situation: Reports: , Assisted Living Occupation: Retired H&P Review of Systems - Review of Systems: Review Of Systems: See Below General: Reports: Malaise, Weakness HEENT: Reports: No Symptoms Pulmonary: Reports: Shortness of Breath, Cough Cardiovascular: Reports: No Symptoms Gastrointestinal: Reports: No Symptoms Genitourinary: Reports: No Symptoms Musculoskeletal: Reports: No Symptoms, Leg Pain Skin: Reports: Bruising, Rash Psychiatric: Reports: No Symptoms Neurological: Reports: No Symptoms Hematologic/Lymphatic: Reports: No Symptoms Immunologic: Reports: No Symptoms Exam - Exam Exam: See Below - Vital Signs Vital Signs: Last Vital Signs Temp 36.6 C 10/24/20 13:45 Pulse 67 10/24/20 13:45 Resp 18 10/24/20 13:45 BP 101/70 10/24/20 13:45 Pulse Ox 97 10/24/20 13:45 Weight: 78.381 kg - Exam Quality Assessment: Supplemental Oxygen, DVT Prophylaxis (Currently taking Xarelto from home). No: Urinary Catheter General: Alert, Oriented, Cooperative HEENT: Conjunctiva Clear, EACs Clear, EOMI, Mucosa Moist & [place], PERRLA. No: Hearing Intact Neck: Supple, Trachea Midline. No: JVD Lungs: Normal Respiratory Effort, Crackles, Rales (Bibasilar) Cardiovascular: Regular Rate, Irregular Rhythm GI/Abdominal Exam: Normal Bowel Sounds, Soft, Non-Tender, No Distention. No: Guarding, Rigid, Rebound (Female) Exam: Deferred Rectal (Female) Exam: Deferred Back Exam: No: Normal Inspection (Age-appropriate), Full Range of Motion (Age- appropriate) Extremities: Pedal Edema Skin: Warm, Dry, Pet[place]ia (To torso and lower extremities), Ecchymosis Neurological: Cranial Nerves Intact, Normal Speech Psychiatric: Alert, Normal Affect, Normal Mood - Patient Data Lab Results Last 24 hrs: Laboratory Results - last 24 hr 10/24/20 10/24/20 10/24/20 Range/Units 10:00 10:00 10:00 WBC 6.51 (3.98-10.04) K/mm3 RBC 3.85 L (3.98-5.22) M/mm3 Hgb 13.0 (11.2-15.7) gm/dl Hct 40.0 (34.1-44.9) % MCV 103.9 H (79.4-94.8) fl MCH 33.8 H (25.6-32.2) pg MCHC 32.5 (32.2-35.5) g/dl RDW Std Deviation 54.5 H (36.4-46.3) fL Plt Count 269 (182-369) K/mm3 MPV 10.8 (9.4-12.3) fl Neut % (Auto) 71.1 (34.0-71.1) % Lymph % (Auto) 15.8 L (19.3-51.7) % Barber % (Auto) 11.2 (4.7-12.5) % Eos % (Auto) 0.8 (0.7-5.8) Baso % (Auto) 0.3 (0.1-1.2) % Neut # (Auto) 4.63 (1.56-6.13) K/mm3 Lymph # (Auto) 1.03 L (1.18-3.74) K/mm3 Barber # (Auto) 0.73 H (0.24-0.36) K/mm3 Eos # (Auto) 0.05 (0.04-0.36) K/mm3 Baso # (Auto) 0.02 (0.01-0.08) K/mm3 PT (9.7-12.0) SECONDS INR APTT (21.7-31.4) SECONDS Sodium 141 (136-145) mEq/L Potassium 3.6 (3.5-5.1) mEq/L Chloride 105 (98-107) mEq/L Carbon Dioxide 23 (21-32) mEq/L Anion Gap 16.6 H (5-15) BUN 11 (7-18) mg/dL Creatinine 0.8 (0.55-1.02) mg/dL Est Cr Clr Drug Dosing 42.88 mL/min Estimated GFR (MDRD) > 60 (>60) mL/min BUN/Creatinine Ratio 13.8 L (14-18) Glucose 136 H (70-99) mg/dL Calcium 8.9 (8.5-10.1) mg/dL Magnesium (1.8-2.4) mg/dL Total Bilirubin 0.6 (0.2-1.0) mg/dL AST 19 (15-37) U/L ALT 27 (14-59) U/L Alkaline Phosphatase 118 H (46-116) U/L Troponin I < 0.017 (0.00-0.056) ng/mL NT-Pro-B Natriuret Pep 1873 H (0-450) pg/mL Total Protein 6.7 (6.4-8.2) g/dl Albumin 3.4 (3.4-5.0) g/dl Globulin 3.3 gm/dL Albumin/Globulin Ratio 1.0 (1-2) SARS-CoV-2 RNA (CIARRA) (NEGATIVE) 10/24/20 10/24/20 10/24/20 Range/Units 10:35 10:35 11:30 WBC (3.98-10.04) K/mm3 RBC (3.98-5.22) M/mm3 Hgb (11.2-15.7) gm/dl Hct (34.1-44.9) % MCV (79.4-94.8) fl MCH (25.6-32.2) pg MCHC (32.2-35.5) g/dl RDW Std Deviation (36.4-46.3) fL Plt Count (182-369) K/mm3 MPV (9.4-12.3) fl Neut % (Auto) (34.0-71.1) % Lymph % (Auto) (19.3-51.7) % Barber % (Auto) (4.7-12.5) % Eos % (Auto) (0.7-5.8) Baso % (Auto) (0.1-1.2) % Neut # (Auto) (1.56-6.13) K/mm3 Lymph # (Auto) (1.18-3.74) K/mm3 Barber # (Auto) (0.24-0.36) K/mm3 Eos # (Auto) (0.04-0.36) K/mm3 Baso # (Auto) (0.01-0.08) K/mm3 PT 11.4 (9.7-12.0) SECONDS INR 1.07 APTT 24.3 (21.7-31.4) SECONDS Sodium (136-145) mEq/L Potassium (3.5-5.1) mEq/L Chloride (98-107) mEq/L Carbon Dioxide (21-32) mEq/L Anion Gap (5-15) BUN (7-18) mg/dL Creatinine (0.55-1.02) mg/dL Est Cr Clr Drug Dosing mL/min Estimated GFR (MDRD) (>60) mL/min BUN/Creatinine Ratio (14-18) Glucose (70-99) mg/dL Calcium (8.5-10.1) mg/dL Magnesium 1.9 (1.8-2.4) mg/dL Total Bilirubin (0.2-1.0) mg/dL AST (15-37) U/L ALT (14-59) U/L Alkaline Phosphatase (46-116) U/L Troponin I (0.00-0.056) ng/mL NT-Pro-B Natriuret Pep (0-450) pg/mL Total Protein (6.4-8.2) g/dl Albumin (3.4-5.0) g/dl Globulin gm/dL Albumin/Globulin Ratio (1-2) SARS-CoV-2 RNA (CIARRA) Negative (NEGATIVE) Result Diagrams: 10/24/20 10:00 10/24/20 10:00 Sepsis Event Note - Evaluation Sepsis Screening Result: No Definite Risk - Focused Exam Vital Signs: Vital Signs Temp Temp Pulse Pulse Resp BP BP 10/24/20 13:45 36.6 C 67 18 101/70 10/24/20 12:36 18 123/61 10/24/20 09:57 36.3 C 115 H 20 163/109 H Pulse Ox 10/24/20 13:45 97 10/24/20 12:36 10/24/20 09:57 98 *Q Meaningful Use (ADM) - VTE *Q VTE Mechanical Contraindications *Q: Bilateral Lower Edema VTE Pharmacological Contraindications *Q: Risk of Bleeding - Problem List (1) Congestive heart failure SNOMED Code(s): 62300065 ICD Code: I50.9 - HEART FAILURE, UNSPECIFIED Status: Chronic Priority: High Current Visit: Yes Qualifiers: Heart failure type: biventricular Qualified Code(s): I50.82 - Biventricular heart failure (2) Chronic atrial fibrillation SNOMED Code(s): 870687615 ICD Code: I48.20 - CHRONIC ATRIAL FIBRILLATION, UNSPECIFIED Status: Chronic Priority: High Current Visit: Yes (3) Dependent edema SNOMED Code(s): 964847591 ICD Code: R60.9 - EDEMA, UNSPECIFIED Status: Acute Priority: High Current Visit: Yes (4) Type 2 diabetes mellitus SNOMED Code(s): 49800917 ICD Code: E11.9 - TYPE 2 DIABETES MELLITUS WITHOUT COMPLICATIONS Status: Chronic Priority: Medium Current Visit: Yes Qualifiers: Diabetes mellitus salvage determiner insulin use: with jail use Diabetes mellitus complication status: with circulatory complication Diabetes mellitus complication detail: with other circulatory complications Qualified Code(s): E11.59 - Type 2 diabetes mellitus with other circulatory complications; Z79.4 - assisted (current) use of insulin Problem List Initiated/Reviewed/Updated: Yes Orders Last 24hrs: Active Orders 24 hr Category Date Time Status Admission Status [Patient Status] [ADT] Routine ADT 10/24/20 12:24 Active Blood Glucose Check, Bedside [RC] TIDAC Care 10/24/20 14:14 Active Blood Glucose Check, Bedside [RC] TIDMEALS Care 10/24/20 14:14 Active Insert Urinary Catheter [OM.PC] Q24H Care 10/24/20 14:15 Ordered Intake and Output [RC] QSHIFT Care 10/24/20 14:15 Active Oxygen Therapy [RC] PRN Care 10/24/20 14:14 Active Up With Assistance [RC] ASDIRECTED Care 10/24/20 14:14 Active Urinary Catheter Assessment [RC] ASDIRECTED Care 10/24/20 14:14 Active Urinary Catheter Assessment [RC] ASDIRECTED Care 10/24/20 14:18 Active VTE/DVT Education [RC] PER UNIT ROUTINE Care 10/24/20 14:14 Active Vital Signs [RC] Q4H Care 10/24/20 14:14 Active OT Evaluation and Treatment [CONS] Routine Cons 10/24/20 14:14 Active PT Evaluation and Treatment [CONS] Routine Cons 10/24/20 14:14 Active Consistent Carbohydrate Diet [DIET] Diet 10/24/20 Dinner Active Fluid Restriction [DIET] Diet 10/24/20 Dinner Active Echo 2D wo Cont [US] Urgent Exams 10/24/20 14:14 Ordered CBC WITH AUTO DIFF [HEME] AM Lab 10/25/20 05:11 Ordered COMPREHENSIVE METABOLIC PN,CMP [CHEM] AM Lab 10/25/20 05:11 Ordered MAGNESIUM [CHEM] AM Lab 10/25/20 05:11 Ordered Acetaminophen [TylenoL] Med 10/24/20 14:14 Ordered 650 mg PO Q4H PRN Diltiazem [Cardizem CD] Med 10/25/20 09:00 Active 360 mg PO DAILY Docusate Sodium [Colace] Med 10/24/20 14:14 Ordered 100 mg PO BID PRN Furosemide [Lasix] Med 10/25/20 09:00 Ordered 20 mg IVPUSH DAILY Insulin Regular, Human [HumuLIN R] Med 10/24/20 19:00 Ordered See Protocol SUBCUT TIDPC Ondansetron [Zofran ODT] Med 10/24/20 14:14 Ordered 4 mg PO Q4H PRN Pantoprazole [ProTONIX] Med 10/25/20 09:00 Active 40 mg PO DAILY Rivaroxaban [Xarelto] Med 10/24/20 18:00 Active 15 mg PO QPM Sertraline [Zoloft] Med 10/25/20 09:00 Active 25 mg PO DAILY Sodium Chloride 0.9% [Saline Flush] Med 10/24/20 10:36 Active 10 ml FLUSH ASDIRECTED PRN Temazepam [Restoril] Med 10/24/20 14:14 Ordered 7.5 mg PO BEDTIME PRN metFORMIN [Glucophage] Med 10/25/20 09:00 Active 500 mg PO DAILY oxyCODONE Med 10/24/20 14:14 Ordered 5 mg PO Q4H PRN Peripheral IV Insertion Adult [OM.PC] Stat Oth 10/24/20 10:36 Ordered VTE Mechanical Contraindications [AST] Per Unit Routine Oth 10/24/20 14:14 Ordered VTE Pharmacological Contraindications [AST] Per Unit Oth 10/24/20 14:14 Ordered Routine Resuscitation Status Routine Resus Stat 10/24/20 14:14 Ordered Medication Orders Acetaminophen (Acetaminophen 325 Mg Tab) 650 mg PO Q4H PRN PRN Reason: Pain (Mild 1-3)/fever Diltiazem HCl (Diltiazem 180 Mg Cap.Cd) 360 mg PO DAILY MARCIO Docusate Sodium (Docusate Sodium 100 Mg Cap) 100 mg PO BID PRN PRN Reason: Constipation Furosemide (Furosemide 20 Mg/2 Ml Vial) 20 mg IVPUSH DAILY MARCIO Insulin Human Regular (Insulin Regular, Human 100 Units/Ml 3 Ml Vial) 0 unit SUBCUT TIDPC MARCIO; Protocol Metformin HCl (Metformin 500 Mg Tab) 500 mg PO DAILY MARCIO Ondansetron HCl (Ondansetron 4 Mg Tab.Dis) 4 mg PO Q4H PRN PRN Reason: nausea, able to take PO Oxycodone HCl (Oxycodone 5 Mg Tab) 5 mg PO Q4H PRN PRN Reason: Pain (moderate 4-6) Pantoprazole Sodium (Pantoprazole 40 Mg Tab.Cr) 40 mg PO DAILY MARCIO Rivaroxaban (Rivaroxaban 15 Mg Tab) 15 mg PO QPM MARCIO Sertraline HCl (Sertraline 25 Mg Tab) 25 mg PO DAILY [facility] Sodium Chloride (Sodium Chloride 0.9% 10 Ml Syringe) 10 ml FLUSH ASDIRECTED PRN PRN Reason: Keep Vein Open Last Admin: 10/24/20 10:40 Dose: 10 ml Documented by: [email or web address] Temazepam (Temazepam 7.5 Mg Cap) 7.5 mg PO BEDTIME PRN PRN Reason: Sleep Assessment/Plan Comment:: The patient is an 80-year-old lady who has been admitted to observation. Her initial admission status as inpatient was entered in error. I have ordered a 2D echocardiogram for the patient as her chest x-ray shows evidence of cardiomegaly. Also the patient's lower extremity edema is something that is new for her and is likely something has changed in her heart status. The patient's BNP initially was at 1873. I have ordered the patient to have IV saline lock. I placed the patient on fluid restriction of 1.5 L/day. I have ordered the patient to have IV Lasix 20 mg IV on a daily basis to help with the patient's fl uid overload. She is diabetic and she will be kept on carb constant diet. The patient also will have Accu-Cheks before meals and at bedtime. Repeat laboratory studies have been ordered for the morning. The patient's electrolytes will be replaced as necessary. The patient says that she lives [place] in an apartment with assisted living. I have also ordered PT OT. The patient does not require oxygen at this point. The patient should be appropriate for discharge possibly in 1 to 2 days. - Mortality Measure Prognosis:: Good
[2020-10-24] MEDS ORDERED: RIVAROXABAN 15 MG PO SCH (18:00)
[2020-10-24] MEDS: Insulin Regular, Human 100 Units/ML 3 ML Vial SUBCUT SCH (18:09)
--- NOTE | 2020-10-25 07:35 | PCM.PN ---
- Patient Data Vitals - Most Recent: Last Vital Signs Temp 36.5 C 10/25/20 02:15 Pulse 68 10/25/20 05:57 Resp 18 10/25/20 02:15 BP 142/79 H 10/25/20 05:57 Pulse Ox 96 10/25/20 05:57 Weight - Most Recent: 78.245 kg I&O - Last 24 Hours: Intake & Output 10/24/20 10/25/20 10/25/20 22:59 06:59 14:59 Intake Total 300 300 Output Total 700 300 Balance -400 0 Lab Results Last 24 Hours: Laboratory Results - last 24 hr 10/24/20 10/24/20 10/24/20 Range/Units 10:00 10:00 10:00 WBC 6.51 (3.98-10.04) K/mm3 RBC 3.85 L (3.98-5.22) M/mm3 Hgb 13.0 (11.2-15.7) gm/dl Hct 40.0 (34.1-44.9) % MCV 103.9 H (79.4-94.8) fl MCH 33.8 H (25.6-32.2) pg MCHC 32.5 (32.2-35.5) g/dl RDW Std Deviation 54.5 H (36.4-46.3) fL Plt Count 269 (182-369) K/mm3 MPV 10.8 (9.4-12.3) fl Neut % (Auto) 71.1 (34.0-71.1) % Lymph % (Auto) 15.8 L (19.3-51.7) % [place] % (Auto) 11.2 (4.7-12.5) % Eos % (Auto) 0.8 (0.7-5.8) Baso % (Auto) 0.3 (0.1-1.2) % Neut # (Auto) 4.63 (1.56-6.13) K/mm3 Lymph # (Auto) 1.03 L (1.18-3.74) K/mm3 [place] # (Auto) 0.73 H (0.24-0.36) K/mm3 Eos # (Auto) 0.05 (0.04-0.36) K/mm3 Baso # (Auto) 0.02 (0.01-0.08) K/mm3 PT (9.7-12.0) SECONDS INR APTT (21.7-31.4) SECONDS Sodium 141 (136-145) mEq/L Potassium 3.6 (3.5-5.1) mEq/L Chloride 105 (98-107) mEq/L Carbon Dioxide 23 (21-32) mEq/L Anion Gap 16.6 H (5-15) BUN 11 (7-18) mg/dL Creatinine 0.8 (0.55-1.02) mg/dL Est Cr Clr Drug Dosing 42.88 mL/min Estimated GFR (MDRD) > 60 (>60) mL/min BUN/Creatinine Ratio 13.8 L (14-18) Glucose 136 H (70-99) mg/dL POC Glucose (70-99) mg/dL Calcium 8.9 (8.5-10.1) mg/dL Magnesium (1.8-2.4) mg/dL Total Bilirubin 0.6 (0.2-1.0) mg/dL AST 19 (15-37) U/L ALT 27 (14-59) U/L Alkaline Phosphatase 118 H (46-116) U/L Troponin I < 0.017 (0.00-0.056) ng/mL NT-Pro-B Natriuret Pep 1873 H (0-450) pg/mL Total Protein 6.7 (6.4-8.2) g/dl Albumin 3.4 (3.4-5.0) g/dl Globulin 3.3 gm/dL Albumin/Globulin Ratio 1.0 (1-2) SARS-CoV-2 RNA (CIARRA) (NEGATIVE) MRSA (PCR) 10/24/20 10/24/20 10/24/20 Range/Units 10:35 10:35 11:30 WBC (3.98-10.04) K/mm3 RBC (3.98-5.22) M/mm3 Hgb (11.2-15.7) gm/dl Hct (34.1-44.9) % MCV (79.4-94.8) fl MCH (25.6-32.2) pg MCHC (32.2-35.5) g/dl RDW Std Deviation (36.4-46.3) fL Plt Count (182-369) K/mm3 MPV (9.4-12.3) fl Neut % (Auto) (34.0-71.1) % Lymph % (Auto) (19.3-51.7) % [place] % (Auto) (4.7-12.5) % Eos % (Auto) (0.7-5.8) Baso % (Auto) (0.1-1.2) % Neut # (Auto) (1.56-6.13) K/mm3 Lymph # (Auto) (1.18-3.74) K/mm3 [place] # (Auto) (0.24-0.36) K/mm3 Eos # (Auto) (0.04-0.36) K/mm3 Baso # (Auto) (0.01-0.08) K/mm3 PT 11.4 (9.7-12.0) SECONDS INR 1.07 APTT 24.3 (21.7-31.4) SECONDS Sodium (136-145) mEq/L Potassium (3.5-5.1) mEq/L Chloride (98-107) mEq/L Carbon Dioxide (21-32) mEq/L Anion Gap (5-15) BUN (7-18) mg/dL Creatinine (0.55-1.02) mg/dL Est Cr Clr Drug Dosing mL/min Estimated GFR (MDRD) (>60) mL/min BUN/Creatinine Ratio (14-18) Glucose (70-99) mg/dL POC Glucose (70-99) mg/dL Calcium (8.5-10.1) mg/dL Magnesium 1.9 (1.8-2.4) mg/dL Total Bilirubin (0.2-1.0) mg/dL AST (15-37) U/L ALT (14-59) U/L Alkaline Phosphatase (46-116) U/L Troponin I (0.00-0.056) ng/mL NT-Pro-B Natriuret Pep (0-450) pg/mL Total Protein (6.4-8.2) g/dl Albumin (3.4-5.0) g/dl Globulin gm/dL Albumin/Globulin Ratio (1-2) SARS-CoV-2 RNA (CIARRA) Negative (NEGATIVE) MRSA (PCR) 10/24/20 10/24/20 10/25/20 Range/Units 15:20 17:32 05:45 WBC 6.37 (3.98-10.04) K/mm3 RBC 3.43 L (3.98-5.22) M/mm3 Hgb 11.6 (11.2-15.7) gm/dl Hct 35.7 (34.1-44.9) % MCV 104.1 H (79.4-94.8) fl MCH 33.8 H (25.6-32.2) pg MCHC 32.5 (32.2-35.5) g/dl RDW Std Deviation 54.5 H (36.4-46.3) fL Plt Count 227 (182-369) K/mm3 MPV 10.8 (9.4-12.3) fl Neut % (Auto) 65.1 (34.0-71.1) % Lymph % (Auto) 18.7 L (19.3-51.7) % [place] % (Auto) 14.3 H (4.7-12.5) % Eos % (Auto) 1.3 (0.7-5.8) Baso % (Auto) 0.3 (0.1-1.2) % Neut # (Auto) 4.15 (1.56-6.13) K/mm3 Lymph # (Auto) 1.19 (1.18-3.74) K/mm3 [place] # (Auto) 0.91 H (0.24-0.36) K/mm3 Eos # (Auto) 0.08 (0.04-0.36) K/mm3 Baso # (Auto) 0.02 (0.01-0.08) K/mm3 PT (9.7-12.0) SECONDS INR APTT (21.7-31.4) SECONDS Sodium (136-145) mEq/L Potassium (3.5-5.1) mEq/L Chloride (98-107) mEq/L Carbon Dioxide (21-32) mEq/L Anion Gap (5-15) BUN (7-18) mg/dL Creatinine (0.55-1.02) mg/dL Est Cr Clr Drug Dosing mL/min Estimated GFR (MDRD) (>60) mL/min BUN/Creatinine Ratio (14-18) Glucose (70-99) mg/dL POC Glucose 90 (70-99) mg/dL Calcium (8.5-10.1) mg/dL Magnesium (1.8-2.4) mg/dL Total Bilirubin (0.2-1.0) mg/dL AST (15-37) U/L ALT (14-59) U/L Alkaline Phosphatase (46-116) U/L Troponin I (0.00-0.056) ng/mL NT-Pro-B Natriuret Pep (0-450) pg/mL Total Protein (6.4-8.2) g/dl Albumin (3.4-5.0) g/dl Globulin gm/dL Albumin/Globulin Ratio (1-2) SARS-CoV-2 RNA (CIARRA) (NEGATIVE) MRSA (PCR) Negative 10/25/20 10/25/20 Range/Units 05:45 06:26 WBC (3.98-10.04) K/mm3 RBC (3.98-5.22) M/mm3 Hgb (11.2-15.7) gm/dl Hct (34.1-44.9) % MCV (79.4-94.8) fl MCH (25.6-32.2) pg MCHC (32.2-35.5) g/dl RDW Std Deviation (36.4-46.3) fL Plt Count (182-369) K/mm3 MPV (9.4-12.3) fl Neut % (Auto) (34.0-71.1) % Lymph % (Auto) (19.3-51.7) % [place] % (Auto) (4.7-12.5) % Eos % (Auto) (0.7-5.8) Baso % (Auto) (0.1-1.2) % Neut # (Auto) (1.56-6.13) K/mm3 Lymph # (Auto) (1.18-3.74) K/mm3 [place] # (Auto) (0.24-0.36) K/mm3 Eos # (Auto) (0.04-0.36) K/mm3 Baso # (Auto) (0.01-0.08) K/mm3 PT (9.7-12.0) SECONDS INR APTT (21.7-31.4) SECONDS Sodium 146 H (136-145) mEq/L Potassium 3.8 (3.5-5.1) mEq/L Chloride 109 H (98-107) mEq/L Carbon Dioxide 28 (21-32) mEq/L Anion Gap 12.8 (5-15) BUN 15 (7-18) mg/dL Creatinine 0.7 (0.55-1.02) mg/dL Est Cr Clr Drug Dosing 49.01 mL/min Estimated GFR (MDRD) > 60 (>60) mL/min BUN/Creatinine Ratio 21.4 H (14-18) Glucose 105 H (70-99) mg/dL POC Glucose 97 (70-99) mg/dL Calcium 9.0 (8.5-10.1) mg/dL Magnesium 2.0 (1.8-2.4) mg/dL Total Bilirubin 0.7 (0.2-1.0) mg/dL AST 15 (15-37) U/L ALT 23 (14-59) U/L Alkaline Phosphatase 95 (46-116) U/L Troponin I (0.00-0.056) ng/mL NT-Pro-B Natriuret Pep (0-450) pg/mL Total Protein 5.7 L (6.4-8.2) g/dl Albumin 2.9 L (3.4-5.0) g/dl Globulin 2.8 gm/dL Albumin/Globulin Ratio 1.0 (1-2) SARS-CoV-2 RNA (CIARRA) (NEGATIVE) MRSA (PCR) Med Orders - Current: Current Medications Acetaminophen (Acetaminophen 325 Mg Tab) 650 mg PO Q4H PRN PRN Reason: Pain (Mild 1-3)/fever Last Admin: 10/24/20 21:14 Dose: 650 mg Documented by: Docusate Sodium (Docusate Sodium 100 Mg Cap) 100 mg PO BID PRN PRN Reason: Constipation Furosemide (Furosemide 20 Mg/2 Ml Vial) 20 mg IVPUSH DAILY [facility] Insulin Human Regular (Insulin Regular, Human 100 Units/Ml 3 Ml Vial) 0 unit SUBCUT TIDPC MARCIO; Protocol Last Admin: 10/24/20 18:09 Dose: Not Given Documented by: Metformin HCl (Metformin 500 Mg Tab Patient's Own Med ) 500 mg PO DAILY MARCIO Omeprazole (Omeprazole 20 Mg Cap.Cr Patient's Own Med ) 20 mg PO DAILY MARCIO Ondansetron HCl (Ondansetron 4 Mg Tab.Dis) 4 mg PO Q4H PRN PRN Reason: nausea, able to take PO Oxycodone HCl (Oxycodone 5 Mg Tab) 5 mg PO Q4H PRN PRN Reason: Pain (moderate 4-6) Rivaroxaban (Rivaroxaban 15 Mg Tab Patient's Own Med ) 15 mg PO DAILY [facility] Sertraline HCl (Sertraline 25 Mg Tab Patient's Own Med ) 25 mg PO DAILY [facility] Sodium Chloride (Sodium Chloride 0.9% 10 Ml Syringe) 10 ml FLUSH ASDIRECTED PRN PRN Reason: Keep Vein Open Last Admin: 10/24/20 10:40 Dose: 10 ml Documented by: Temazepam (Temazepam 7.5 Mg Cap) 7.5 mg PO BEDTIME PRN PRN Reason: Sleep Discontinued Medications Diltiazem HCl (Diltiazem 180 Mg Cap.Cd) 360 mg PO DAILY [facility] Furosemide (Furosemide 40 Mg/4 Ml Vial) 40 mg IVPUSH NOW ONE Stop: 10/24/20 10:37 Last Admin: 10/24/20 10:48 Dose: 40 mg Documented by: Metoprolol Tartrate (Metoprolol Tartrate 5 Mg/5 Ml Sdv) 5 mg IVPUSH ONETIME ONE Stop: 10/24/20 10:53 Last Admin: 10/24/20 11:08 Dose: Not Given Documented by: Pantoprazole Sodium (Pantoprazole 40 Mg Tab.Cr) 40 mg PO DAILY [facility] Rivaroxaban (Rivaroxaban 15 Mg Tab Patient's Own Med ) 15 mg PO QPM MARCIO - Patient Data Lab Results Last 24 hrs: Laboratory Results - last 24 hr 10/24/20 10/24/20 10/24/20 Range/Units 10:00 10:00 10:00 WBC 6.51 (3.98-10.04) K/mm3 RBC 3.85 L (3.98-5.22) M/mm3 Hgb 13.0 (11.2-15.7) gm/dl Hct 40.0 (34.1-44.9) % MCV 103.9 H (79.4-94.8) fl MCH 33.8 H (25.6-32.2) pg MCHC 32.5 (32.2-35.5) g/dl RDW Std Deviation 54.5 H (36.4-46.3) fL Plt Count 269 (182-369) K/mm3 MPV 10.8 (9.4-12.3) fl Neut % (Auto) 71.1 (34.0-71.1) % Lymph % (Auto) 15.8 L (19.3-51.7) % [place] % (Auto) 11.2 (4.7-12.5) % Eos % (Auto) 0.8 (0.7-5.8) Baso % (Auto) 0.3 (0.1-1.2) % Neut # (Auto) 4.63 (1.56-6.13) K/mm3 Lymph # (Auto) 1.03 L (1.18-3.74) K/mm3 [place] # (Auto) 0.73 H (0.24-0.36) K/mm3 Eos # (Auto) 0.05 (0.04-0.36) K/mm3 Baso # (Auto) 0.02 (0.01-0.08) K/mm3 PT (9.7-12.0) SECONDS INR APTT (21.7-31.4) SECONDS Sodium 141 (136-145) mEq/L Potassium 3.6 (3.5-5.1) mEq/L Chloride 105 (98-107) mEq/L Carbon Dioxide 23 (21-32) mEq/L Anion Gap 16.6 H (5-15) BUN 11 (7-18) mg/dL Creatinine 0.8 (0.55-1.02) mg/dL Est Cr Clr Drug Dosing 42.88 mL/min Estimated GFR (MDRD) > 60 (>60) mL/min BUN/Creatinine Ratio 13.8 L (14-18) Glucose 136 H (70-99) mg/dL POC Glucose (70-99) mg/dL Calcium 8.9 (8.5-10.1) mg/dL Magnesium (1.8-2.4) mg/dL Total Bilirubin 0.6 (0.2-1.0) mg/dL AST 19 (15-37) U/L ALT 27 (14-59) U/L Alkaline Phosphatase 118 H (46-116) U/L Troponin I < 0.017 (0.00-0.056) ng/mL NT-Pro-B Natriuret Pep 1873 H (0-450) pg/mL Total Protein 6.7 (6.4-8.2) g/dl Albumin 3.4 (3.4-5.0) g/dl Globulin 3.3 gm/dL Albumin/Globulin Ratio 1.0 (1-2) SARS-CoV-2 RNA (CIARRA) (NEGATIVE) MRSA (PCR) 10/24/20 10/24/20 10/24/20 Range/Units 10:35 10:35 11:30 WBC (3.98-10.04) K/mm3 RBC (3.98-5.22) M/mm3 Hgb (11.2-15.7) gm/dl Hct (34.1-44.9) % MCV (79.4-94.8) fl MCH (25.6-32.2) pg MCHC (32.2-35.5) g/dl RDW Std Deviation (36.4-46.3) fL Plt Count (182-369) K/mm3 MPV (9.4-12.3) fl Neut % (Auto) (34.0-71.1) % Lymph % (Auto) (19.3-51.7) % [place] % (Auto) (4.7-12.5) % Eos % (Auto) (0.7-5.8) Baso % (Auto) (0.1-1.2) % Neut # (Auto) (1.56-6.13) K/mm3 Lymph # (Auto) (1.18-3.74) K/mm3 [place] # (Auto) (0.24-0.36) K/mm3 Eos # (Auto) (0.04-0.36) K/mm3 Baso # (Auto) (0.01-0.08) K/mm3 PT 11.4 (9.7-12.0) SECONDS INR 1.07 APTT 24.3 (21.7-31.4) SECONDS Sodium (136-145) mEq/L Potassium (3.5-5.1) mEq/L Chloride (98-107) mEq/L Carbon Dioxide (21-32) mEq/L Anion Gap (5-15) BUN (7-18) mg/dL Creatinine (0.55-1.02) mg/dL Est Cr Clr Drug Dosing mL/min Estimated GFR (MDRD) (>60) mL/min BUN/Creatinine Ratio (14-18) Glucose (70-99) mg/dL POC Glucose (70-99) mg/dL Calcium (8.5-10.1) mg/dL Magnesium 1.9 (1.8-2.4) mg/dL Total Bilirubin (0.2-1.0) mg/dL AST (15-37) U/L ALT (14-59) U/L Alkaline Phosphatase (46-116) U/L Troponin I (0.00-0.056) ng/mL NT-Pro-B Natriuret Pep (0-450) pg/mL Total Protein (6.4-8.2) g/dl Albumin (3.4-5.0) g/dl Globulin gm/dL Albumin/Globulin Ratio (1-2) SARS-CoV-2 RNA (CIARRA) Negative (NEGATIVE) MRSA (PCR) 10/24/20 10/24/20 10/25/20 Range/Units 15:20 17:32 05:45 WBC 6.37 (3.98-10.04) K/mm3 RBC 3.43 L (3.98-5.22) M/mm3 Hgb 11.6 (11.2-15.7) gm/dl Hct 35.7 (34.1-44.9) % MCV 104.1 H (79.4-94.8) fl MCH 33.8 H (25.6-32.2) pg MCHC 32.5 (32.2-35.5) g/dl RDW Std Deviation 54.5 H (36.4-46.3) fL Plt Count 227 (182-369) K/mm3 MPV 10.8 (9.4-12.3) fl Neut % (Auto) 65.1 (34.0-71.1) % Lymph % (Auto) 18.7 L (19.3-51.7) % [place] % (Auto) 14.3 H (4.7-12.5) % Eos % (Auto) 1.3 (0.7-5.8) Baso % (Auto) 0.3 (0.1-1.2) % Neut # (Auto) 4.15 (1.56-6.13) K/mm3 Lymph # (Auto) 1.19 (1.18-3.74) K/mm3 [place] # (Auto) 0.91 H (0.24-0.36) K/mm3 Eos # (Auto) 0.08 (0.04-0.36) K/mm3 Baso # (Auto) 0.02 (0.01-0.08) K/mm3 PT (9.7-12.0) SECONDS INR APTT (21.7-31.4) SECONDS Sodium (136-145) mEq/L Potassium (3.5-5.1) mEq/L Chloride (98-107) mEq/L Carbon Dioxide (21-32) mEq/L Anion Gap (5-15) BUN (7-18) mg/dL Creatinine (0.55-1.02) mg/dL Est Cr Clr Drug Dosing mL/min Estimated GFR (MDRD) (>60) mL/min BUN/Creatinine Ratio (14-18) Glucose (70-99) mg/dL POC Glucose 90 (70-99) mg/dL Calcium (8.5-10.1) mg/dL Magnesium (1.8-2.4) mg/dL Total Bilirubin (0.2-1.0) mg/dL AST (15-37) U/L ALT (14-59) U/L Alkaline Phosphatase (46-116) U/L Troponin I (0.00-0.056) ng/mL NT-Pro-B Natriuret Pep (0-450) pg/mL Total Protein (6.4-8.2) g/dl Albumin (3.4-5.0) g/dl Globulin gm/dL Albumin/Globulin Ratio (1-2) SARS-CoV-2 RNA (CIARRA) (NEGATIVE) MRSA (PCR) Negative 10/25/20 10/25/20 Range/Units 05:45 06:26 WBC (3.98-10.04) K/mm3 RBC (3.98-5.22) M/mm3 Hgb (11.2-15.7) gm/dl Hct (34.1-44.9) % MCV (79.4-94.8) fl MCH (25.6-32.2) pg MCHC (32.2-35.5) g/dl RDW Std Deviation (36.4-46.3) fL Plt Count (182-369) K/mm3 MPV (9.4-12.3) fl Neut % (Auto) (34.0-71.1) % Lymph % (Auto) (19.3-51.7) % [place] % (Auto) (4.7-12.5) % Eos % (Auto) (0.7-5.8) Baso % (Auto) (0.1-1.2) % Neut # (Auto) (1.56-6.13) K/mm3 Lymph # (Auto) (1.18-3.74) K/mm3 [place] # (Auto) (0.24-0.36) K/mm3 Eos # (Auto) (0.04-0.36) K/mm3 Baso # (Auto) (0.01-0.08) K/mm3 PT (9.7-12.0) SECONDS INR APTT (21.7-31.4) SECONDS Sodium 146 H (136-145) mEq/L Potassium 3.8 (3.5-5.1) mEq/L Chloride 109 H (98-107) mEq/L Carbon Dioxide 28 (21-32) mEq/L Anion Gap 12.8 (5-15) BUN 15 (7-18) mg/dL Creatinine 0.7 (0.55-1.02) mg/dL Est Cr Clr Drug Dosing 49.01 mL/min Estimated GFR (MDRD) > 60 (>60) mL/min BUN/Creatinine Ratio 21.4 H (14-18) Glucose 105 H (70-99) mg/dL POC Glucose 97 (70-99) mg/dL Calcium 9.0 (8.5-10.1) mg/dL Magnesium 2.0 (1.8-2.4) mg/dL Total Bilirubin 0.7 (0.2-1.0) mg/dL AST 15 (15-37) U/L ALT 23 (14-59) U/L Alkaline Phosphatase 95 (46-116) U/L Troponin I (0.00-0.056) ng/mL NT-Pro-B Natriuret Pep (0-450) pg/mL Total Protein 5.7 L (6.4-8.2) g/dl Albumin 2.9 L (3.4-5.0) g/dl Globulin 2.8 gm/dL Albumin/Globulin Ratio 1.0 (1-2) SARS-CoV-2 RNA (CIARRA) (NEGATIVE) MRSA (PCR) Result Diagrams: 10/25/20 05:45 10/25/20 05:45 Sepsis Event Note - Evaluation Sepsis Screening Result: No Definite Risk - Focused Exam Vital Signs: Vital Signs Temp Pulse Resp BP Pulse Ox 10/25/20 05:57 68 142/79 H 96 10/25/20 02:15 36.5 C 74 18 163/82 H 95 10/24/20 20:50 36.8 C 67 16 119/78 94 L - Problem List & Annotations (1) Congestive heart failure SNOMED Code(s): 82953921 Code(s): I50.9 - HEART FAILURE, UNSPECIFIED Status: Chronic Priority: High Current Visit: Yes Qualifiers: Heart failure type: biventricular Qualified Code(s): I50.82 - Biventricular heart failure (2) Chronic atrial fibrillation SNOMED Code(s): 041035795 Code(s): I48.20 - CHRONIC ATRIAL FIBRILLATION, UNSPECIFIED Status: Chronic Priority: High Current Visit: Yes (3) Dependent edema SNOMED Code(s): 258488661 Code(s): R60.9 - EDEMA, UNSPECIFIED Status: Acute Priority: High Current Visit: Yes (4) Type 2 diabetes mellitus SNOMED Code(s): 48705618 Code(s): E11.9 - TYPE 2 DIABETES MELLITUS WITHOUT COMPLICATIONS Status: Chronic Priority: Medium Current Visit: Yes Qualifiers: Diabetes mellitus skilled nursing insulin use: with termite treater helper use Diabetes da litus complication status: with circulatory complication Diabetes mellitus complication detail: with other circulatory complications Qualified Code(s): E11.59 - Type 2 diabetes mellitus with other circulatory complications; Z79.4 - intermediate school teacher (current) use of insulin - My Orders Last 24 Hours: My Active Orders 10/24/20 14:14 Blood Glucose Check, Bedside [RC] TIDMEALS Oxygen Therapy [RC] PRN Up With Assistance [RC] BID VTE/DVT Education [RC] DAILY Vital Signs [RC] Q4HR OT Evaluation and Treatment [CONS] Routine PT Evaluation and Treatment [CONS] Routine Acetaminophen [TylenoL] 650 mg PO Q4H PRN Docusate Sodium [Colace] 100 mg PO BID PRN Ondansetron [Zofran ODT] 4 mg PO Q4H PRN Temazepam [Restoril] 7.5 mg PO BEDTIME PRN oxyCODONE 5 mg PO Q4H PRN VTE Mechanical Contraindications [AST] Per Unit Routine VTE Pharmacological Contraindications [AST] Per Unit Routine Resuscitation Status Routine 10/24/20 15:11 Intake and Output Strict [RC] Q2HR 10/24/20 15:12 Admission Status [Patient Status] [ADT] Routine 10/24/20 Dinner Consistent Carbohydrate Diet [DIET] Fluid Restriction [DIET] 10/24/20 19:00 Insulin Regular, Human [HumuLIN R] See Protocol SUBCUT TIDPC 10/25/20 09:00 Furosemide [Lasix] 20 mg IVPUSH DAILY Omeprazole 20 mg PO DAILY Rivaroxaban [Xarelto] 15 mg PO DAILY Sertraline [Zoloft] 25 mg PO DAILY metFORMIN [Glucophage] 500 mg PO DAILY - Plan Plan:: The patient is an 80-year-old lady who has been admitted to observation. Her initial admission status as inpatient was entered in error. I have ordered a 2D echocardiogram for the patient as her chest x-ray shows evidence of cardiomegaly. Also the patient's lower extremity edema is something that is new for her and is likely something has changed in her heart status. The patient's BNP initially was at 1873. I have ordered the patient to have IV saline lock. I placed the patient on fluid restriction of 1.5 L/day. I have ordered the patient to have IV Lasix 20 mg IV on a daily basis to help with the patient's fl uid overload. She is diabetic and she will be kept on carb constant diet. The patient also will have Accu-Cheks before meals and at bedtime. Repeat laboratory studies have been ordered for the morning. The patient's electrolytes will be replaced as necessary. The patient says that she lives [place] in an apartment with assisted living. I have also ordered PT OT. The patient does not require oxygen at this point. The patient should be appropriate for discharge possibly in 1 to 2 days.
[2020-10-25] MEDS: Insulin Regular, Human 100 Units/ML 3 ML Vial SUBCUT SCH ×2 (08:42→13:14)
[2020-10-25] MEDS ORDERED: Diltiazem 180 MG Cap.CD PO SCH (09:00)
[2020-10-25] MEDS ORDERED: RIVAROXABAN 15 MG PO SCH (09:00)
[2020-10-25] MEDS ORDERED: Pantoprazole 40 MG Tab.CR PO SCH (09:00)
[2020-10-25] MEDS ORDERED: Omeprazole 20 MG Cap.CR ** PATIENT'S OWN MED PO SCH (09:00)
[2020-10-25] MEDS ORDERED: METFORMIN 500 MG PO SCH (09:00)
[2020-10-25] MEDS ORDERED: Furosemide 20 MG/2 ML VIAL IVPUSH SCH (09:00)
[2020-10-25] MEDS ORDERED: SERTRALINE 25 MG PO SCH (09:00)
[2020-10-25 11:18] LABS: HEMOGLOBIN A1C 7.4 %
--- NOTE | 2020-10-25 13:08 | PCM.DCSUM1 ---
Discharge Summary - Hospital Course Free Text/Narrative:: Congestive heart failure, chronic, due to chronic atrial fibrillation, HFpE Diagnosis: Stroke: No - Discharge Data Discharge Date: 10/25/20 Discharge Disposition: Home, W Home Health Agency 06 Condition: Good - Referral to Home Health Date of Face to Face Encounter: 10/25/20 Reason for Homebound Status: A hanf-hi-scka encounter was conducted with the patient on October 25, 2020. The patient has the following diagnoses; CHF, chronic atrial fibrillation, dependent edema, type 2 diabetes mellitus and see discharge summary for additional diagnoses. The patient needs home health care nursing services for skilled assessment, vital signs, disease education and management, weight, and medication education. Physical therapy for gait training, transfer training, safety education and neuromuscular reeducation, therapeutic exercise, balance training, equipment recommendations. Patient is currently homebound related to decreased physical activity tolerance, decreased level of endurance and need for walker with ambulation. The patient will be followed by her primary care provider Dr. Bardales Primary Care Physician: Dior Villasenor MD Skilled Need: Gait training, transfer training, safety education - Discharge Diagnosis/Problem(s) (1) Congestive heart failure SNOMED Code(s): 21898101 ICD Code: I50.9 - HEART FAILURE, UNSPECIFIED Status: Chronic Priority: High Problem Details: Due to chronic atrial fibrillation. 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 The patient says that she has been short of breath as well as having painful swollen lower extremities. The patient's shortness of breath has been significant as she has been unable to walk across her kitchen without becoming short of breath. She also has a history of racing heart. The patient says that she has been getting worse over the weekend. She had gained approximately 10 pounds. The patient was admitted and she was diuresed without difficulty.The patient had been admitted to observation. The patient also noted to have responded nicely to the Lasix with with excessive urination of almost 4 L output. The patient has been given prescription for lisinopril 5 mg p.o. daily to help with heart failure as well as Lasix 20 mg p.o. in the morning to help with excessive fluids. She has also been recommended to monitor her weight. The patient also had been placed on a 2 L fluid restriction upon discharge. The patient is also a diabetic and she had several hypoglycemic episodes and was recommended to her to have her insulin decrease. She is to follow-up with her primary care physician for final adjustments. Patient has been tolerating her diet. She has been recommended to continue with the appro priate heart healthy, diabetic diet as tolerated. She also has home health ordered to help with gait training, ambulation, safety education and assistance to increase her physical activity. The patient has been otherwise hemodynamically stable and she has been discharged with the recommendations listed above. - Patient Instructions Diet: Diabetic Diet Fluid Restriction: 2000 mL Activity: As Tolerated - Discharge Plan *PRESCRIPTION DRUG MONITORING PROGRAM REVIEWED*: No *COPY OF PRESCRIPTION DRUG MONITORING REPORT IN PATIENT KAMILLA: No Prescriptions/Med Rec: Furosemide [Lasix] 20 mg PO DAILY #30 tab lisinopriL [Lisinopril] 5 mg PO DAILY #30 tablet Home Medications: Home Meds dilTIAZem HCL [Taztia Xt] 360 mg PO DAILY 08/12/13 [History] metFORMIN [Glucophage] 500 mg PO DAILY 08/12/13 [History] Acetaminophen [Tylenol Extra Strength] 1 - 2 tab PO Q4HR PRN 01/01/16 [History] Omeprazole 20 mg PO DAILY #30 tablet. 03/16/20 [Rx] Rivaroxaban [Xarelto] 15 mg PO DAILY #0 03/16/20 [Rx] Loratadine 10 mg PO DAILY PRN 10/24/20 [History] Metoprolol Succinate [Toprol XL 100mg] 150 mg PO DAILY 10/24/20 [History] Psyllium Husk [Daily Fiber] 5 cap PO DAILY 10/24/20 [History] Sertraline [Zoloft] 25 mg PO DAILY 10/24/20 [History] Furosemide [Lasix] 20 mg PO DAILY #30 tab 10/25/20 [Rx] Insulin Regular, Human [HumuLIN R] 0 unit SUBCUT TIDPC vial 10/25/20 [Rx] lisinopriL [Lisinopril] 5 mg PO DAILY #30 tablet 10/25/20 [Rx] Oxygen Therapy Mode: Room Air Patient Handouts: Heart Failure, Self Care, [id number]-[id number], Edema, Heart Failure Action Plan, Cooking With Less Salt Forms: ED Department Discharge Referrals: Dior Villasenor MD [Primary Care Provider] - 11/03/20 8:00 am (Please arrive at 0800 for check in) - Discharge Summary/Plan Comment DC Time >30 min.: Yes - General Info Date of Service: 10/25/20 Admission Dx/Problem (Free Text: Admission Diagnosis/Problem Admission Diagnosis/Problem Congestive heart failure, chronic due to atrial fibrillations, HFpEF Subjective Update: The patient is doing better today. She has been urinating. The patient also says that she feels like she can go home safely. Functional Status: Reports: Pain Controlled, Tolerating Diet - Review of Systems General: Reports: No Symptoms HEENT: Reports: No Symptoms Pulmonary: Reports: No Symptoms Cardiovascular: Reports: No Symptoms Gastrointestinal: Reports: No Symptoms Genitourinary: Reports: No Symptoms Musculoskeletal: Reports: No Symptoms Skin: Reports: No Symptoms Neurological: Reports: No Symptoms Psychiatric: Reports: No Symptoms - Patient Data Vitals - Most Recent: Last Vital Signs Temp 36.8 C 10/25/20 08:36 Pulse 85 10/25/20 08:36 Resp 18 10/25/20 08:36 BP 147/89 H 10/25/20 08:36 Pulse Ox 92 L 10/25/20 08:36 Weight - Most Recent: 78.245 kg I&O - Last 24 hours: Intake & Output 10/24/20 10/25/20 10/25/20 22:59 06:59 14:59 Intake Total 300 300 290 Output Total 681 301 9533 Balance -400 0 -1060 Lab Results - Last 24 hrs: Laboratory Results - last 24 hr 10/24/20 10/24/20 10/24/20 Range/Units 11:30 15:20 17:32 WBC (3.98-10.04) K/mm3 RBC (3.98-5.22) M/mm3 Hgb (11.2-15.7) gm/dl Hct (34.1-44.9) % MCV (79.4-94.8) fl MCH (25.6-32.2) pg MCHC (32.2-35.5) g/dl RDW Std Deviation (36.4-46.3) fL Plt Count (182-369) K/mm3 MPV (9.4-12.3) fl Neut % (Auto) (34.0-71.1) % Lymph % (Auto) (19.3-51.7) % [place] % (Auto) (4.7-12.5) % Eos % (Auto) (0.7-5.8) Baso % (Auto) (0.1-1.2) % Neut # (Auto) (1.56-6.13) K/mm3 Lymph # (Auto) (1.18-3.74) K/mm3 [place] # (Auto) (0.24-0.36) K/mm3 Eos # (Auto) (0.04-0.36) K/mm3 Baso # (Auto) (0.01-0.08) K/mm3 Sodium (136-145) mEq/L Potassium (3.5-5.1) mEq/L Chloride (98-107) mEq/L Carbon Dioxide (21-32) mEq/L Anion Gap (5-15) BUN (7-18) mg/dL Creatinine (0.55-1.02) mg/dL Est Cr Clr Drug Dosing mL/min Estimated GFR (MDRD) (>60) mL/min BUN/Creatinine Ratio (14-18) Glucose (70-99) mg/dL POC Glucose 90 (70-99) mg/dL Hemoglobin A1c ( - 5.6) % Calcium (8.5-10.1) mg/dL Magnesium (1.8-2.4) mg/dL Total Bilirubin (0.2-1.0) mg/dL AST (15-37) U/L ALT (14-59) U/L Alkaline Phosphatase (46-116) U/L Total Protein (6.4-8.2) g/dl Albumin (3.4-5.0) g/dl Globulin gm/dL Albumin/Globulin Ratio (1-2) SARS-CoV-2 RNA (CIARRA) Negative (NEGATIVE) MRSA (PCR) Negative 10/25/20 10/25/20 10/25/20 Range/Units 05:45 05:45 05:45 WBC 6.37 (3.98-10.04) K/mm3 RBC 3.43 L (3.98-5.22) M/mm3 Hgb 11.6 (11.2-15.7) gm/dl Hct 35.7 (34.1-44.9) % MCV 104.1 H (79.4-94.8) fl MCH 33.8 H (25.6-32.2) pg MCHC 32.5 (32.2-35.5) g/dl RDW Std Deviation 54.5 H (36.4-46.3) fL Plt Count 227 (182-369) K/mm3 MPV 10.8 (9.4-12.3) fl Neut % (Auto) 65.1 (34.0-71.1) % Lymph % (Auto) 18.7 L (19.3-51.7) % [place] % (Auto) 14.3 H (4.7-12.5) % Eos % (Auto) 1.3 (0.7-5.8) Baso % (Auto) 0.3 (0.1-1.2) % Neut # (Auto) 4.15 (1.56-6.13) K/mm3 Lymph # (Auto) 1.19 (1.18-3.74) K/mm3 [place] # (Auto) 0.91 H (0.24-0.36) K/mm3 Eos # (Auto) 0.08 (0.04-0.36) K/mm3 Baso # (Auto) 0.02 (0.01-0.08) K/mm3 Sodium 146 H (136-145) mEq/L Potassium 3.8 (3.5-5.1) mEq/L Chloride 109 H (98-107) mEq/L Carbon Dioxide 28 (21-32) mEq/L Anion Gap 12.8 (5-15) BUN 15 (7-18) mg/dL Creatinine 0.7 (0.55-1.02) mg/dL Est Cr Clr Drug Dosing 49.01 mL/min Estimated GFR (MDRD) > 60 (>60) mL/min BUN/Creatinine Ratio 21.4 H (14-18) Glucose 105 H (70-99) mg/dL POC Glucose (70-99) mg/dL Hemoglobin A1c 7.4 H ( - 5.6) % Calcium 9.0 (8.5-10.1) mg/dL Magnesium 2.0 (1.8-2.4) mg/dL Total Bilirubin 0.7 (0.2-1.0) mg/dL AST 15 (15-37) U/L ALT 23 (14-59) U/L Alkaline Phosphatase 95 (46-116) U/L Total Protein 5.7 L (6.4-8.2) g/dl Albumin 2.9 L (3.4-5.0) g/dl Globulin 2.8 gm/dL Albumin/Globulin Ratio 1.0 (1-2) SARS-CoV-2 RNA (CIARRA) (NEGATIVE) MRSA (PCR) 10/25/20 10/25/20 Range/Units 06:26 11:08 WBC (3.98-10.04) K/mm3 RBC (3.98-5.22) M/mm3 Hgb (11.2-15.7) gm/dl Hct (34.1-44.9) % MCV (79.4-94.8) fl MCH (25.6-32.2) pg MCHC (32.2-35.5) g/dl RDW Std Deviation (36.4-46.3) fL Plt Count (182-369) K/mm3 MPV (9.4-12.3) fl Neut % (Auto) (34.0-71.1) % Lymph % (Auto) (19.3-51.7) % [place] % (Auto) (4.7-12.5) % Eos % (Auto) (0.7-5.8) Baso % (Auto) (0.1-1.2) % Neut # (Auto) (1.56-6.13) K/mm3 Lymph # (Auto) (1.18-3.74) K/mm3 [place] # (Auto) (0.24-0.36) K/mm3 Eos # (Auto) (0.04-0.36) K/mm3 Baso # (Auto) (0.01-0.08) K/mm3 Sodium (136-145) mEq/L Potassium (3.5-5.1) mEq/L Chloride (98-107) mEq/L Carbon Dioxide (21-32) mEq/L Anion Gap (5-15) BUN (7-18) mg/dL Creatinine (0.55-1.02) mg/dL Est Cr Clr Drug Dosing mL/min Estimated GFR (MDRD) (>60) mL/min BUN/Creatinine Ratio (14-18) Glucose (70-99) mg/dL POC Glucose 97 166 H (70-99) mg/dL Hemoglobin A1c ( - 5.6) % Calcium (8.5-10.1) mg/dL Magnesium (1.8-2.4) mg/dL Total Bilirubin (0.2-1.0) mg/dL AST (15-37) U/L ALT (14-59) U/L Alkaline Phosphatase (46-116) U/L Total Protein (6.4-8.2) g/dl Albumin (3.4-5.0) g/dl Globulin gm/dL Albumin/Globulin Ratio (1-2) SARS-CoV-2 RNA (CIARRA) (NEGATIVE) MRSA (PCR) Med Orders - Current: Current Medications Acetaminophen (Acetaminophen 325 Mg Tab) 650 mg PO Q4H PRN PRN Reason: Pain (Mild 1-3)/fever Last Admin: 10/24/20 21:14 Dose: 650 mg Documented by: Docusate Sodium (Docusate Sodium 100 Mg Cap) 100 mg PO BID PRN PRN Reason: Constipation Furosemide (Furosemide 20 Mg/2 Ml Vial) 20 mg IVPUSH DAILY MARCIO Last Admin: 10/25/20 08:39 Dose: 20 mg Documented by: Insulin Human Regular (Insulin Regular, Human 100 Units/Ml 3 Ml Vial) 0 unit SUBCUT TIDPC [facility]; Protocol Last Admin: 10/25/20 08:42 Dose: Not Given Documented by: Metformin HCl (Metformin 500 Mg Tab Patient's Own Med ) 500 mg PO DAILY [facility] Last Admin: 10/25/20 08:41 Dose: 500 mg Documented by: Metoprolol Succinate 150 Mg Tab.Er (Pt's Own Med) 0 mg PO DAILY [facility] Omeprazole (Omeprazole 20 Mg Cap.Cr Patient's Own Med ) 20 mg PO DAILY [facility] Last Admin: 10/25/20 08:40 Dose: 20 mg Documented by: Ondansetron HCl (Ondansetron 4 Mg Tab.Dis) 4 mg PO Q4H PRN PRN Reason: nausea, able to take PO Oxycodone HCl (Oxycodone 5 Mg Tab) 5 mg PO Q4H PRN PRN Reason: Pain (moderate 4-6) Rivaroxaban (Rivaroxaban 15 Mg Tab Patient's Own Med ) 15 mg PO DAILY [facility] Last Admin: 10/25/20 08:42 Dose: 15 mg Documented by: Sertraline HCl (Sertraline 25 Mg Tab Patient's Own Med ) 25 mg PO DAILY [facility] Last Admin: 10/25/20 08:41 Dose: 25 mg Documented by: Sodium Chloride (Sodium Chloride 0.9% 10 Ml Syringe) 10 ml FLUSH ASDIRECTED PRN PRN Reason: Keep Vein Open Last Admin: 10/24/20 10:40 Dose: 10 ml Documented by: Temazepam (Temazepam 7.5 Mg Cap) 7.5 mg PO BEDTIME PRN PRN Reason: Sleep Discontinued Medications Diltiazem HCl (Diltiazem 180 Mg Cap.Cd) 360 mg PO DAILY [facility] Furosemide (Furosemide 40 Mg/4 Ml Vial) 40 mg IVPUSH NOW ONE Stop: 10/24/20 10:37 Last Admin: 10/24/20 10:48 Dose: 40 mg Documented by: Metoprolol Tartrate (Metoprolol Tartrate 5 Mg/5 Ml Sdv) 5 mg IVPUSH ONETIME ONE Stop: 10/24/20 10:53 Last Admin: 10/24/20 11:08 Dose: Not Given Documented by: Pantoprazole Sodium (Pantoprazole 40 Mg Tab.Cr) 40 mg PO DAILY [facility] Rivaroxaban (Rivaroxaban 15 Mg Tab Patient's Own Med ) 15 mg PO QPM MARCIO - Exam Quality Assessment: Reports: DVT Prophylaxis (Currently on Xarelto chronically for atrial fibrillation.). Denies: Supplemental Oxygen General: Reports: Alert, Oriented, Cooperative, No Acute Distress HEENT: Reports: Pupils Equal, Pupils Reactive, EOMI, Mucous Membr. Moist/[place] Neck: Reports: Supple Lungs: Reports: Clear to Auscultation, Normal Respiratory Effort Cardiovascular: Reports: Regular Rate, No Murmurs, Irregular Rhythm GI/Abdominal Exam: Normal Bowel Sounds, Soft, Non-Tender, No Distention (Female) Exam: Deferred Rectal (Female) Exam: Deferred Back Exam: Denies: Normal Inspection (Appropriate for age.), Full Range of Motion (Appropriate for age) Extremities: Pedal Edema (Improved.) Skin: Reports: Warm, Dry, Intact Neurological: Reports: No New Focal Deficit Psy/Mental Status: Reports: Alert, Normal Affect, Normal Mood *Q Meaningful Use (DIS) - VTE *Q VTE Mechanical Contraindications *Q: Bilateral Lower Edema VTE Pharmacological Contraindications *Q: Risk of Bleeding
[2020-10-25 13:18] VITALS: BP 145/91; PULSE 78
[2020-10-26] MEDS ORDERED: METOPROLOL SUCCINATE 150 MG PO SCH (09:00)
== END 2020-10-25 14:15 | disposition home health service (06) ==
LOC: JD.ED 09:47 → INTOOBSV 12:24 → JD.MS 12:24
PROVIDERS: ADMIT Internal Medicine; ATTEND Internal Medicine
DX: I11.0 Hypertensive heart disease with heart failure (principal); I50.30 Unspecified diastolic (congestive) heart failure; I48.20 Chronic atrial fibrillation, unspecified; I48.91 Unspecified atrial fibrillation; I25.10 Atherosclerotic heart disease of native coronary artery without angina pectoris; E78.00 Pure hypercholesterolemia, unspecified; E11.9 Type 2 diabetes mellitus without complications; Z20.822 Contact with and (suspected) exposure to COVID-19; Z79.4 Long term (current) use of insulin; Z79.899 Other long term (current) drug therapy; Z88.1 Allergy status to other antibiotic agents; Z95.0 Presence of cardiac pacemaker; Z87.891 Personal history of nicotine dependence; Z88.8 Allergy status to other drugs, medicaments and biological substances; Z88.2 Allergy status to sulfonamides; Z79.82 Long term (current) use of aspirin
CPT/HCPCS: 36415; 71045; 80053; 82947; 83036; 83735; 83880; 84484; 85025; 85610; 85730; 87641; 93005; 93306; 96374; 96376; 97110; 97162; 99285; A9270; G0378; J1815; J1940; U0002; 93010; 99284

== ENCOUNTER 2022-03-07 16:55 | Emergency (ER) | payer MEDICARE, OTHER ==
[2022-03-07 17:15] VITALS: BP 156/73
[2022-03-07] MEDS ORDERED: Morphine 2 MG/ML SYRINGE IVPUSH PRN (17:28)
[2022-03-07] MEDS ORDERED: Aspirin 81 MG Tab.Chew PO ONE (17:28)
[2022-03-07] MEDS: Sodium Chloride 0.9% 10 ML Syringe FLUSH PRN ×2 (17:46→18:53)
[2022-03-07 18:10] LABS: ESTIMATED GFR 63 mL/min (>60)
[2022-03-07] MEDS ORDERED: Iopamidol 755 Mg/ML 100 ML Bottle IVPUSH ONE (18:34)
[2022-03-07] MEDS ORDERED: Sodium Chloride 0.9% 100 ML IV SCH (18:45)
[2022-03-07 20:54] VITALS: PULSE 78
== END 2022-03-07 20:49 | disposition home or self-care (01) ==
LOC: JD.ED 16:55
DX: J18.9 Pneumonia, unspecified organism (principal); K76.89 Other specified diseases of liver; K86.89 Other specified diseases of pancreas; I11.0 Hypertensive heart disease with heart failure; I50.9 Heart failure, unspecified; R59.0 Localized enlarged lymph nodes; M79.604 Pain in right leg; I25.10 Atherosclerotic heart disease of native coronary artery without angina pectoris; E11.9 Type 2 diabetes mellitus without complications; E66.9 Obesity, unspecified; Z68.30 Body mass index [BMI] 30.0-30.9, adult; Z88.0 Allergy status to penicillin; Z88.1 Allergy status to other antibiotic agents; Z88.2 Allergy status to sulfonamides; Z79.899 Other long term (current) drug therapy; Z79.84 Long term (current) use of oral hypoglycemic drugs; Z79.4 Long term (current) use of insulin
CPT/HCPCS: 36415; 71045; 71275; 80053; 84484; 85025; 85379; 93005; 96374; 99285; A9270; J2270; J3490; Q9967

== ENCOUNTER 2022-03-12 12:18 | Emergency (ER) | payer MEDICARE, OTHER ==
[2022-03-12] MEDS ORDERED: Furosemide 40 MG/4 ML VIAL IVPUSH ONE (12:58)
[2022-03-12] MEDS ORDERED: Sodium Chloride 0.9% 10 ML Syringe FLUSH PRN (13:00)
[2022-03-12 14:10] LABS: ESTIMATED GFR 56 mL/min (>60)
[2022-03-12 19:08] VITALS: BP 116/78; PULSE 75
== END 2022-03-12 18:00 | disposition home or self-care (01) ==
LOC: JD.ED 12:18
DX: I11.0 Hypertensive heart disease with heart failure (principal); I50.9 Heart failure, unspecified; R93.5 Abnormal findings on diagnostic imaging of other abdominal regions, including retroperitoneum; I48.91 Unspecified atrial fibrillation; I25.10 Atherosclerotic heart disease of native coronary artery without angina pectoris; E78.00 Pure hypercholesterolemia, unspecified; M19.90 Unspecified osteoarthritis, unspecified site; E11.9 Type 2 diabetes mellitus without complications; I45.2 Bifascicular block; E66.9 Obesity, unspecified; Z68.28 Body mass index [BMI] 28.0-28.9, adult; Z88.0 Allergy status to penicillin; Z88.1 Allergy status to other antibiotic agents; Z88.8 Allergy status to other drugs, medicaments and biological substances; Z88.2 Allergy status to sulfonamides; Z79.84 Long term (current) use of oral hypoglycemic drugs; Z79.01 Long term (current) use of anticoagulants; Z79.899 Other long term (current) drug therapy
CPT/HCPCS: 36415; 71045; 80053; 81001; 82553; 82977; 83735; 83880; 84484; 85025; 85610; 85652; 85730; 86140; 93005; 96374; 99285; J1940; J3490